=== PATIENT | female | born 1985 | race African-American/Black ===

== ENCOUNTER 2018-06-16 21:23 | Inpatient (IN) | payer OTHER ==
[2018-06-16] MEDS ORDERED: NA CHLORIDE 0.9% 1,000 ML ONE (22:48)
[2018-06-16] MEDS ORDERED: NA CHLORIDE 0.9% 500 ML ONE (22:48)
[2018-06-17] MEDS ORDERED: FENTANYL CITR 100 MCG/2 ML ONE (00:04)
[2018-06-17] MEDS ORDERED: Ringers Lactate 1,000 ML IV ONE (01:28)
[2018-06-17 02:20] LABS: Urine Bacteria <20 /HPF (<20); Urine Culture Reflex Order NOT NEEDED; Urine RBC <5 /HPF (NONE SEEN)
--- NOTE | 2018-06-17 03:17 | EDPHYS ---
Physician Documentation [facility] Name: Jhoana Acosta Age: 32 yrs Sex: Female : 1985 Arrival Date: 06/16/2018 Time: 21:28 Bed 6 Private MD: ED Physician Sheldon Banuelos HPI: 06/17 02:19 This 32 yrs old Black Female presents to ER via Wheelchair with complaints of Diarrhea. snw 02:19 The patient presents to the emergency department with nausea, vomiting, diarrhea. snw Onset: The symptoms/episode began/occurred gradually, 2 week(s) ago. Possible causes: unknown. The symptoms are aggravated by nothing. Associated signs and symptoms: Pertinent positives: diarrhea, Pertinent negatives: fever, vomiting. Severity of symptoms: At their worst the symptoms were moderate. The patient has experienced a previous episode, last month. 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 - Social history:: Smoking status: Patient/guardian denies using tobacco. - Ebola Screening: : No symptoms or risks identified at this time. ROS: 06/17 01:43 Constitutional: Negative for fever, chills, and weight loss, Eyes: Negative for injury, snw pain, redness, and discharge, ENT: Negative for injury, pain, and discharge, Neck: Negative for injury, pain, and swelling, Cardiovascular: Negative for chest pain, palpitations, and edema, Respiratory: Negative for shortness of breath, cough, wheezing, and pleuritic chest pain, Back: Negative for injury and pain, : Negative for injury, bleeding, discharge, and swelling, MS/Extremity: Negative for injury and deformity, Skin: Negative for injury, rash, and discoloration, Neuro: Negative for headache, weakness, numbness, tingling, and seizure. Abdomen/GI: Positive for diarrhea, abdominal distension, moaning more today.. Exam: 00:12 Head/Face: Normocephalic, atraumatic. Eyes: Pupils equal round and reactive to light, snw extra-ocular motions intact. Lids and lashes normal. Conjunctiva and sclera are non-icteric and not injected. Cornea within normal limits. Periorbital areas with no swelling, redness, or edema. 00:12 Neck: Trachea midline, no thyromegaly or masses palpated, and no cervical lymphadenopathy. Supple, full range of motion without nuchal rigidity, or vertebral point tenderness. No Meningismus. Chest/axilla: Normal chest wall appearance and motion. Nontender with no deformity. No lesions are appreciated. 00:12 Respiratory: Lungs have equal breath sounds bilaterally, clear to auscultation and percussion. No rales, rhonchi or wheezes noted. No increased work of breathing, no retractions or nasal flaring. 00:12 Back: No spinal tenderness. No costovertebral tenderness. Full range of motion. Skin: Warm, dry with normal turgor. Normal color with no rashes, no lesions, and no evidence of cellulitis. 00:12 Constitutional: The patient appears awake, restless, uncomfortable. 00:12 ENT: External ear(s): are unremarkable, Mouth: drooling, that is moderate, Voice: doesn't speak. 00:12 Cardiovascular: Rate: tachycardic, Rhythm: regular. 00:12 Abdomen/GI: Inspection: abdomen appears normal, Bowel sounds: hyperactive, Palpation: mild abdominal tenderness. 00:12 Musculoskeletal/extremity: Circulation is intact in all extremities. 00:12 Neuro: Orientation: unable to test, Mentation: unable to follow commands, Cerebellar function: CP, Gait: not tested. seizure activity, is not displayed by the patient, Abnormal movements: contractured, increased tone. Vital Signs: 06/16 21:48 BP 118 / 77; Pulse 120; Resp 20; Temp 97.4(TE); Pulse Ox 98% on R/A; Weight 62.14 kg lp1 (R); 22:47 BP 109 / 79; Pulse 118; Resp 23 S; Pulse Ox 99% on R/A; cc3 06/17 00:30 BP 106 / 72; Pulse 115; Resp 25 S; Pulse Ox 99% on R/A; cc3 01:14 BP 132 / 102; Pulse 127; Resp 26; Temp 99.9(A); Pulse Ox 99% on R/A; cc3 02:00 BP 121 / 93; Pulse 127; Resp 30; Pulse Ox 100% on Non-rebreather mask; cc3 03:45 BP 144 / 78; Pulse 121; Resp 26 S; Pulse Ox 98% on R/A; cc3 04:04 BP 126 / 82; Pulse 124; Resp 26 S; Pulse Ox 97% on R/A; cc3 05:07 BP 123 / 98; Pulse 118; Resp 25 S; Temp 100.1(A); Pulse Ox 98% on R/A; cc3 05:25 Pulse 132; Resp 35 S; Pulse Ox 97% on R/A; cc3 MDM: 06/16 22:31 Patient medically screened. [facility] 06/17 03:02 Data reviewed: vital signs, nurses notes. Data interpreted: Pulse oximetry: on room air snw is 100 %. Interpretation: normal. Counseling: I had a detailed discussion with the patient and/or guardian regarding: the historical points, exam findings, and any diagnostic results supporting the discharge/admit diagnosis, the presence of at least one elevated blood pressure reading (>120/80) during this emergency department visit, lab results, radiology results, the need for further work-up and treatment in the hospital. Physician consultation: Christine Krishnamurthy MD was called at 03:03, was contacted at 03:03, regarding admission, to the medical/surgical unit. 06/16 22:34 Order name: Basic Metabolic Panel; Complete Time: 15:18 snw 06/16 22:34 Order name: CBC with Diff; Complete Time: 15:18 snw 06/16 22:34 Order name: Creatinine for Radiology; Complete Time: 15:18 snw 06/16 22:34 Order name: Hepatic Function; Complete Time: 15:18 snw 06/16 22:34 Order name: Lipase; Complete Time: 15:18 snw 06/16 22:35 Order name: Blood Culture Adult (2) snw 06/16 22:35 Order name: CDIFF snw 06/17 01:04 Order name: Urine Culture snw 06/17 01:04 Order name: Urine Microscopic Only; Complete Time: 02:22 snw 06/17 01:05 Order name: Tegretol Level; Complete Time: 15:18 snw 06/17 02:22 Order name: CT Abd/Pelvis - Without Cont; Complete Time: 15:18 snw 06/17 02:30 Order name: Urine Dipstick--Ancillary (enter results); Complete Time: 15:18 ms 06/17 02:30 Order name: Urine --Ancillary (enter results); Complete Time: 15:18 ms 06/16 22:34 Order name: IV Saline Lock; Complete Time: 02:25 snw 06/16 22:34 Order name: Labs collected and sent; Complete Time: 03:32 snw 06/17 01:04 Order name: Cath; Complete Time: 02:23 snw 06/17 01:05 Order name: VS Recheck; Complete Time: 01:17 snw Administered Medications: 06/16 23:50 Drug: NS 0.9% (20 ml/kg) 20 ml/kg Route: IV; Rate: 1 bolus; Site: right hand; cc3 06/17 01:15 Follow up: Response: No adverse reaction; IV Status: Completed infusion; IV Intake: cc3 1242.8ml 00:00 Drug: fentaNYL (PF) 25 mcg Route: IVP; Site: right hand; cc3 00:30 Follow up: Response: No adverse reaction cc3 01:20 Drug: Lactated Ringers Solution 1000 ml Route: IV; Rate: 100 ml/hr; Site: right hand; cc3 05:15 Follow up: Response: No adverse reaction; IV Status: Infusion continued upon admission cc3 05:00 Drug: Ativan 0.5 mg Route: IVP; Site: right hand; cc3 05:15 Follow up: Response: No adverse reaction; Anxiety decreased cc3 Disposition: 07:26 Co-signature as Attending Physician, Sheldon Banuelos MD I agree with the assessment and [facility] plan of care. Disposition: 06/17/18 03:17 Hospitalization ordered by Christine Krishnamurthy for Inpatient Admission. Preliminary diagnosis are Dehydration, Diarrhea, unspecified, Generalized abdominal pain. - Bed requested for Intensive Care Unit. - Status is Inpatient Admission. cc3 - Condition is Fair. - Problem is an acute exacerbation. - Symptoms are unchanged. UTI on Admission? No Signatures: Dispatcher [employer] Denise Reid RN RN kl Anderson, Corey, MD MD cha Therrien, Shelly, PROPELLER LAYOUT WORKER-C PROPELLER LAYOUT WORKER-Csnw Andra Blair, RN RN bb Dayanara Thompson RN RN lp1 Mahnaz Mendosa cc3 Corrections: (The following items were deleted from the chart) 04:35 03:17 Hospitalization Ordered by Christine Krishnamurthy MD for Inpatient Admission. Preliminary kl diagnosis is Dehydration; Diarrhea, unspecified; Generalized abdominal pain. Bed requested for Intensive Care Unit. Status is Inpatient Admission. Condition is Fair. Problem is an acute exacerbation. Symptoms are unchanged. UTI on Admission? No. snw 05:44 04:35 06/17/2018 03:17 Hospitalization Ordered by Christine Krishnamurthy MD for Inpatient cc3 Admission. Preliminary diagnosis is Dehydration; Diarrhea, unspecified; Generalized abdominal pain. Bed requested for Intensive Care Unit. Status is Inpatient Admission. Condition is Fair. Problem is an acute exacerbation. Symptoms are unchanged. UTI on Admission? No. kl
--- NOTE | 2018-06-17 03:17 | ER ---
Nurse's Notes [facility] Name: Jhoana Acosta Age: 32 yrs Sex: Female : 1985 Arrival Date: 06/16/2018 Time: 21:28 Bed 6 Private MD: Diagnosis: Dehydration;Diarrhea, unspecified;Generalized abdominal pain Presentation: 06/16 21:49 Presenting complaint: Sister states she has been fussy all day, diarrhea x 2 weeks; lp1 Worried she may be dehydrated; States seen at [facility] last month for dehydration; appetite decreased today, "pressing on stomach seemed to agitate her". Transition of care: patient was not received from another setting of care. Onset of symptoms was June 16, 2018. Risk Assessment: Do you want to hurt yourself or someone else? Patient reports no desire to harm self or others. Initial Sepsis Screen: Does the patient meet any 2 criteria? No. Patient's initial sepsis screen is negative. Does the patient have a suspected source of infection? No. Patient's initial sepsis screen is negative. Care prior to arrival: None. 21:49 Method Of Arrival: Wheelchair lp1 21:49 Acuity: JILLIAN 3 lp1 Triage Assessment: 21:52 General: Patient resting, eyes closed, respirations unlabored. 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 - Social history:: Smoking status: Patient/guardian denies using tobacco. - Ebola Screening: : No symptoms or risks identified at this time. Screenin:53 Abuse screen: Denies threats or abuse. Denies injuries from another. Nutritional lp1 screening: No deficits noted. Tuberculosis screening: No symptoms or risk factors identified. 22:00 Fall Risk Secondary diagnosis (15 points) seizures, cerebral palsy. cc3 Assessment: 22:00 General: Appears in no apparent distress. uncomfortable, Behavior is calm. Pain: Unable cc3 to use pain scale. cerebral palsy. Neuro: Level of Consciousness is awake, confused, aphasic. Oriented to none aphasic. Cardiovascular: Denies chest pain. Respiratory: Airway is patent Respiratory effort is even, unlabored. GI: Abdomen is round distended. : No signs and/or symptoms were reported regarding the genitourinary system. EENT: No signs and/or symptoms were reported regarding the EENT system. Derm: No signs and/or symptoms reported regarding the dermatologic system. Musculoskeletal: cerebral palsy with flexed limbs. 23:00 Reassessment: Patient appears in no apparent distress at this time. Patient and/or cc3 family updated on plan of care and expected duration. Pain level reassessed. 06/17 00:15 Reassessment: called inside laboratory to do phlebotomy for the patient. cc3 00:46 Reassessment: Patient appears in no apparent distress at this time. Patient and/or cc3 family updated on plan of care and expected duration. Pain level reassessed. botany laboratory assistant came to do phlebotomy for the patient but unfortunately was not able to get, KERRY Patiño informed and she said to just hydrate the patient as of the meantime. 02:00 Reassessment: While preparing the patient for straight urinary catheter insertion, she cc3 developed tonic clonic seizures for 5 seconds, oxygen therapy and seizure precautions initiated; vital signs taken and recorded and informed KERRY Patiño. Patient's sister said the patient 's having seizures daily. 02:40 Reassessment: Phlebotomy done by charge nurse Silverman, blood sample collected sent to cc3 laboratory. 03:13 Reassessment: Patient came back from CT scan department, CT scan abdomen/pelvis done as cc3 ordered, waiting for result. 03:40 Reassessment: Laboratory called for clotted CBC, needs to be repeated; informed charge cc3 nurse Andra and said to call Dr. Krishnamurthy if he wants to put a PICC line for the patient once admitted. 03:50 Reassessment: Called Dr. Krishnamurthy thrice but he was not able to answer his phone and his cc3 voicemail box is full as well, charge nurse Andra informed. 04:10 Reassessment: Charge nurse Andra informed Dr. Krishnamurthy thru text messaging that there's no cc3 way we can prick again the patient for a repeat CBC sample and he replied that he will come to see the patient. Charge nurse Waynenda said she paged for the botany laboratory assistant to come and do phlebotomy for repeat CBC for the patient but no response from the botany laboratory assistant. 04:50 Reassessment: Dr. Krishnamurthy came and assessed the patient and he's aware that CBC needs to cc3 be repeated and he said he will order for PICC line insertion once the patient is admitted in the ICU and then that's when CBC sample can be recollected, charge nurse Andra aware. 04:57 Reassessment: received verbal order from Dr Krishnamurthy Ativan 0.5 mg IVP. bb 05:15 Reassessment: Patient and/or family updated on plan of care and expected duration. Pain cc3 level reassessed. Room available in ICU bed 2, report called to SUBHA Field, endorsed as well that Dr. Krishnamurthy said he will order for PICC line insertion for the patient once in ICU and still for CBC sample recollection. 05:20 Reassessment: Patient left ER vitally stable for admission by stretcher on seizure cc3 precautions, continuous cardiac monitoring and oxygen; escorted by SUBHA Joya, natural gas technician Guido and patient's sister. 05:25 Reassessment: Patient had another tonic-clonic seizure episode while on transport in cc3 the elevator on the way to ICU that lasted for 8 seconds. Vitals signs taken and recorded as charted, patient stabilized, and handed over to SUBHA Field that the patient just had another seizure episode. Vital Signs: 06/16 21:48 BP 118 / 77; Pulse 120; Resp 20; Temp 97.4(TE); Pulse Ox 98% on R/A; Weight 62.14 kg lp1 (R); 22:47 BP 109 / 79; Pulse 118; Resp 23 S; Pulse Ox 99% on R/A; cc3 06/17 00:30 BP 106 / 72; Pulse 115; Resp 25 S; Pulse Ox 99% on R/A; cc3 01:14 BP 132 / 102; Pulse 127; Resp 26; Temp 99.9(A); Pulse Ox 99% on R/A; cc3 02:00 BP 121 / 93; Pulse 127; Resp 30; Pulse Ox 100% on Non-rebreather mask; cc3 03:45 BP 144 / 78; Pulse 121; Resp 26 S; Pulse Ox 98% on R/A; cc3 04:04 BP 126 / 82; Pulse 124; Resp 26 S; Pulse Ox 97% on R/A; cc3 05:07 BP 123 / 98; Pulse 118; Resp 25 S; Temp 100.1(A); Pulse Ox 98% on R/A; cc3 05:25 Pulse 132; Resp 35 S; Pulse Ox 97% on R/A; cc3 ED Course: 06/16 21:28 Patient arrived in ED. ds1 21:50 Triage completed. lp1 21:52 Arm band placed on right wrist. lp1 22:00 Patient has correct armband on for positive identification. Placed in gown. Bed in low cc3 position. Call light in reach. Side rails up X2. Adult w/ patient. 22:17 Kaylyn Tang FNP-C is PHCP. snw 22:17 Sheldon Banuelos MD is Attending Physician. snw 22:37 Mahnaz Mendosa is Primary Nurse. cc3 23:49 Inserted saline lock: 24 gauge in right hand, using aseptic technique. by LOCAL BULK DRIVER Kaylyn. cc3 06/17 03:16 Christine Krishnamurthy MD is Hospitalizing Provider. snw 03:18 CT Abd/Pelvis - Without Cont In Process Unspecified. EDMS 03:19 CT completed. Patient tolerated procedure well. Patient moved back from CT. kw1 03:59 Notified the admitting physician of a critical lab result(s), Carbamazepine 13.9 Dr latoya Krishnamurthy notified. 05:15 No provider procedures requiring assistance completed. Patient admitted, IV remains in cc3 place. Administered Medications: 06/16 23:50 Drug: NS 0.9% (20 ml/kg) 20 ml/kg Route: IV; Rate: 1 bolus; Site: right hand; cc3 06/17 01:15 Follow up: Response: No adverse reaction; IV Status: Completed infusion; IV Intake: cc3 1242.8ml 00:00 Drug: fentaNYL (PF) 25 mcg Route: IVP; Site: right hand; cc3 00:30 Follow up: Response: No adverse reaction cc3 01:20 Drug: Lactated Ringers Solution 1000 ml Route: IV; Rate: 100 ml/hr; Site: right hand; cc3 05:15 Follow up: Response: No adverse reaction; IV Status: Infusion continued upon admission cc3 05:00 Drug: Ativan 0.5 mg Route: IVP; Site: right hand; cc3 05:15 Follow up: Response: No adverse reaction; Anxiety decreased cc3 Intake: 01:15 IV: 1243ml; Total: 1243ml. cc3 Outcome: 03:17 Decision to Hospitalize by Provider. snw 05:15 Admitted to ICU accompanied by nurse, accompanied by tech, family with patient, via cc3 stretcher, room ICU Room 2, with oxygen, on monitor, with chart, Report called to SUBHA Field 05:15 Condition: stable cc3 05:15 Instructed on the need for admit. 05:44 Patient left the ED. cc3 Signatures: Dispatcher [employer] EDMS Kaylyn Tang, CHRISTIAN HEAVY DUTY CUSTODIAN-Leela Busby ds1 Andra Blair RN RN bb Pena, Laura, RN RN lp1 Denise French1 Mahnaz Mendosa cc3 Corrections: (The following items were deleted from the chart) 06/16 21:54 21:49 Presenting complaint: Sister states she has been fussy all day, diarrhea x 2 lp1 weeks; Worried she may be dehydrated; States seen at [facility] last month for dehydration lp1 06/17 01:17 01:14 BP 132 / 102; Pulse 127bpm; Resp 22bpm; Pulse Ox 99% RA; cc3 cc3 04:00 03:40 Reassessment: Laboratory called for clotted CBC, needs to be repeated; informed cc3 charge nurse Andra. cc3 04:01 03:59 Notified the admitting physician of a critical lab result(s), Carbamazapine 13.[address] Krishnamurthy notified bb 04:10 10 22:37 General: see triage assessment. cc3 cc3 06/17 05:46 05:07 BP 123 / 98; Pulse 118bpm; Resp 22bpm; Spontaneous; Pulse Ox 98% RA; cc3 cc3 05:48 01:14 BP 132 / 102; Pulse 127bpm; Resp 22bpm; Pulse Ox 99% RA; Temp 99.9F Axillary; cc3 cc3 05:48 02:00 BP 121 / 93; Pulse 127bpm; Resp 25bpm; Pulse Ox 100% Non-rebreather mask; cc3 cc3 05:48 00:30 BP 106 / 72; Pulse 115bpm; Resp 21bpm; Spontaneous; Pulse Ox 99% RA; cc3 cc3 05:48 03:45 BP 144 / 78; Pulse 121bpm; Resp 20bpm; Spontaneous; Pulse Ox 98% RA; cc3 cc3 05:48 04:04 BP 126 / 82; Pulse 124bpm; Resp 21bpm; Spontaneous; Pulse Ox 97% RA; cc3 cc3 05:53 02:00 Reassessment: While preparing the patient for straight urinary catheter cc3 insertion, she developed tonic clonic seizures for 5 seconds, oxygen therapy and seizure precautions initiated; vital signs taken and recorded and informed LOCAL BULK DRIVER cc3 05:53 04:50 Reassessment: Dr. Krishnamurthy came and assessed the patient, awaiting plan. cc3 cc3
[2018-06-17 03:41] LABS: ALT/SGPT 24 U/L (12-78); AST/SGOT 12 U/L (15-37); Albumin 2.7 g/dL (3.4-5.0); Alkaline Phosphatase 86 U/L (45-117); BUN Blood Urea Nitrogen 5 mg/dL (7-18); Bicarbonate 20 mmol/L (21-32); Bilirubin Direct 0.2 mg/dL (0-0.2); Bilirubin Total 0.5 mg/dL (0.2-1.0); Glucose Level 115 mg/dL (74-106); Potassium 3.3 mmol/L (3.5-5.1); Protein, Total 7.5 g/dL (6.4-8.2); Sodium Level 143 mmol/L (136-145)
[2018-06-17 03:42] LABS: Lipase 72 U/L (73-393)
[2018-06-17 04:19] LABS: Urine Blood TRACE (NEG); Urine Glucose NEGATIVE (NEG); Urine Protein 2+ (NEG)
[2018-06-17] MEDS ORDERED: MORPHINE 2 MG/ML SYR IV PRN (04:20)
[2018-06-17] MEDS ORDERED: ACETAMINOPHEN 500 MG TAB PO PRN (04:20)
[2018-06-17] MEDS ORDERED: ONDANSETRON 4 MG/2 ML VIAL IV PRN (04:20)
[2018-06-17] MEDS ORDERED: NA CHLORIDE 0.9% 1,000 ML IV SCH ×2 (05:00→11:00)
[2018-06-17] MEDS ORDERED: LORazepam 2 MG/ML VIAL ONE (05:07)
[2018-06-17] MEDS ORDERED: CEFTRIAXONE 1 GM/50 ML BAG IV SCH (07:00)
[2018-06-17] MEDS ORDERED: AZITHROMYCIN IV 500 MG in NA CHLORIDE 0.9% 250 ML IVPB SCH (07:00)
--- NOTE | 2018-06-17 07:03 | P.HP ---
Certification for Inpatient Patient admitted to: Inpatient With expected LOS: >2 Midnights Patient will require the following post-hospital care: None Practitioner: I am a practitioner with admitting privileges, knowledge of patient current condition, hospital course, and medical plan of care. Services: Services provided to patient in accordance with Admission requirements found in Title 42 Section 412.3 of the Code of Federal Regulations Patient History Date of Service: 06/16/18 Reason for admission: Altered mental status History of Present Illness: Patient is a 32-year-old female who has a history of cerebral palsy and is cared by her mother at home. Her mother is her main lemon grower but she also has a sister who lives in the area who helps take care of her. Patient had been doing well up until this episode when she became very anxious. She seemed to be agitated and upset. Normally she sleeps quite a bit at home, however, over the last few days she has not been able to sleep at all. She came into the hospital for further evaluation. Most of the history was obtained from her sister who it is not her main lemon grower but is able to give me most of her information. Allergies Paper Tape Allergy (Uncoded 02/26/18 17:40) Rash Home Medications: Albuterol Sulfate [Albuterol Sulfate 0.083% Neb Soln] 2.5 mg IH Q4HP PRN Benzonatate [Tessalon Perle] 100 mg PO Q6HP PRN 03/03/18 Brinzolamide/Brimonidine Tart [Simbrinza 1%-0.2% Eye Drops] 8 ml EACH EYE BID Carbamazepine [Tegretol] 200 mg PO 5XD 03/03/18 Cephalexin [Keflex] 1,000 mg PO BID 03/03/18 Cholecalciferol (Vitamin D3) [Vitamin D 5,000 Iu Cap] 5,000 unit PO EVERY 7TH DAY 03/03/18 Diazepam [Diastat Acudial] 1 each RC PRN 03/03/18 Diphenhydramine HCl [Benadryl Allergy] 25 mg PO BID 03/03/18 Esomeprazole Mag Trihydrate [Nexium] 40 mg PO DAILY 03/03/18 Folic Acid 0.4 mg PO BEDTIME 03/03/18 Ibuprofen [Motrin] 500 mg PO PRN PRN 03/03/18 Latanoprost Ophth [Xalatan 0.005%*] 2.5 ml RIGHT EYE BEDTIME 03/03/18 Levetiracetam [Keppra] 750 mg PO BID 03/03/18 Medroxyprogester [Depo Provera] 150 mg IM DIRECTED 03/03/18 Metoprolol Succinate [Toprol Xl] 25 mg PO BEDTIME 03/03/18 Multivitamin [Daily Multiple Vitamin] 1 each PO BEDTIME 03/03/18 Sodium Bicarbonate 650 mg PO DAILY 03/03/18 Topiramate [Topamax] 100 mg PO BID 03/03/18 hydroCHLOROthiazide [Hydrochlorothiazide*] 1 tab PO DIRECTED 03/03/18 - Past Medical/Surgical History Has patient received pneumonia vaccine in the past: Yes Diabetic: No -: HTN -: Seizure Disorder -: Cerebral palsy -: Microcephaly -: Herpes encephalitis -: Hemiparesis -: PVC -: Cardiomegaly -: Heel cord lengthening of left heel -: Vagus Nerve Stimulator - Family History Father Medical History: Heart disease, Hypertension Mother Medical History: Hypertension, Kidney disease Notes: was on dialysis due to medication toxicity - Social History Smoking Status: Never smoker Alcohol use: No CD- Drugs: No Caffeine use: No Place of Residence: Home Review of Systems 10-point ROS is otherwise unremarkable Physical Examination - Vital Signs Temperature: 99.6 F Blood Pressure: 107/77 Pulse: 129 Respirations: 33 Pulse Ox (%): 97 - Physical Exam General: Alert, Oriented x1, Moderate distress, Confused HEENT: Atraumatic, PERRLA, Mucous membr. moist/pink, EOMI, Sclerae nonicteric Neck: Supple, 2+ carotid pulse no bruit, No LAD, Without JVD or thyroid abnormality Respiratory: Diminished, Expiratory wheezes Cardiovascular: Regular rate/rhythm, Normal S1 S2 Gastrointestinal: Normal bowel sounds, Soft and benign, Non-distended, Tenderness Musculoskeletal: No clubbing, No swelling, Tenderness Integumentary: No rashes Neurological: Normal gait, Normal speech, Normal strength at 5/5 x4 extr, Normal tone, Sensation intact, Cranial nerves 3-12 intact, Normal affect Lymphatics: No axilla or inguinal lymphadenopathy - Studies Laboratory Data (last 24 hrs) 06/17/18 02:40: Creatinine 0.50 L 10/09/18 02:40: Sodium 143, Potassium 3.3 L, BUN 5 L, Creatinine 0.60, Glucose 115 H, Total Bilirubin 0.5, AST 12 L, ALT 24, Alkaline Phosphatase 86, Lipase 72 L Microbiology Data (last 24 hrs): 06/17/18 02:40 Blood - Blood Anaerobic Blood Culture - Final Assessment & Plan - Problems (Diagnosis) (1) Bruxism (teeth grinding) Current Visit: No Status: Acute (2) Cerebral palsy Current Visit: No Status: Acute (3) Developmental disability Current Visit: No Status: Acute (4) Nonrheumatic mitral (valve) insufficiency Current Visit: No Status: Acute (5) Overweight (BMI 25.0-29.9) Current Visit: No Status: Acute (6) Seizure disorder Current Visit: No Status: Acute (7) Visual impairment Current Visit: No Status: Acute - Plan 1. Continue with IV antibiotics 2. Awaiting blood culture 3. Repeat chest x-ray 4. Will proceed with CT scan of the chest if pneumonia is not improved 5. Continue with nebs as needed 6. O2 per protocol 7. Continue with gentle hydration 8. Repeat labs including CBC and renal function in a.m. 9. Anxiolytic as needed 10. GI and DVT prophylaxis Discharge Plan: Home Plan to discharge in: Greater than 2 days - Advance Directives Does patient have a Living Will: No Does patient have a Durable POA for Healthcare: No - Code Status/Comfort Care Code Status Assessed: Yes Code Status: Full Code Critical Care: No Time Spent Managing PTS Care (In Minutes): 50
--- NOTE | 2018-06-17 07:04 | RAD REPORT ---
EXAM DESCRIPTION: CT - Abdomen Pelvis Wo Contrast - 06/17/2018 6:28 am CLINICAL HISTORY: Abdominal pain, recurrent diarrhea A preliminary report was provided at the time of the study and reviewed prior to final report. COMPARISON: None. TECHNIQUE: Axial [address] imaging of the abdomen and pelvis was performed without IV contrast. No IV contrast was given because of allergy, abnormal renal function, patient refusal or physician re quest. No oral contrast administered. All CT scans are performed using dose optimization technique as appropriate and may include automated exposure control or mA/KV adjustment according to patient size. FINDINGS: Right lung base is clear. There is left base opacification representing incompletely visua lized left base pneumonia or left base mass. Trace amount of pleural fluid seen on the left. Follow-u p CT chest or follow-up two-view chest examination needed. No pericardial thickening or effusion. The liver, spleen and pancreas show no suspicious findings on non-contrast imaging. Gallbladder and b iliary tree are also without suspicious finding. No hydronephrosis or suspicious renal mass. No significant adrenal finding. Isodense renal masses an d pyelonephritis cannot be excluded in the absence of IV contrast. The urinary bladder is without sig nificant finding. Uterus and ovaries show no suspicious findings. No dilated bowel loops or bowel wall thickening. No free air, free fluid or inflammatory stranding. N o hernia, mass or bulky lymphadenopathy. No acute bone findings seen. There is a very pronounced scoliotic deformity to the spine. IMPRESSION: Partially imaged pneumonia or mass lower left lung field with trace pleural fluid. Follo w-up chest film or follow-up CT chest imaging needed. CT abdomen and pelvis imaging shows no emergent or acute finding. Full assessment is limited is the absence of IV contrast.
[2018-06-17] MEDS ORDERED: BENZONATATE 100 MG CAP PO PRN (07:15)
[2018-06-17] MEDS ORDERED: LORazepam 2 MG/ML VIAL IV PRN (07:15)
[2018-06-17 07:56] LABS: Absolute Lymphocytes (CBC) 1.9 K/uL (0.7-4.9); Absolute Neutrophil 12.8 K/uL (1.8-8.0); Basophils % 0.5 % (0-1.3); Eosinophils % 0.3 % (0-4.4); Hematocrit 29.9 % (36.0-45.0); Lymphocytes % 11.2 % (15.3-44.8); MCH 24.4 pg (27.0-35.0); MCV 73.8 fL (80-100); MPV 9.1 fL (7.6-11.3); RBC Red Blood Cell Count 4.06 M/uL (3.86-4.86)
[2018-06-17] MEDS ORDERED: INFLUENZA VACCINE (for 3y+) 0.5 ML DOSE IMVAC ONE (08:00)
--- NOTE | 2018-06-17 08:40 | RAD REPORT ---
EXAM DESCRIPTION: CT - Head Brain Wo Cont - 06/17/2018 8:29 am CLINICAL HISTORY: Transient alteration of awareness COMPARISON: CT imaging April 2012 TECHNIQUE: Axial 5 mm thick images of the head were obtained without IV contrast. Patient was in a c ontracted state and imaged on her left side. All CT scans are performed using dose optimization technique as appropriate and may include automated exposure control or mA/KV adjustment according to patient size. FINDINGS: No intracranial hemorrhage, mass, edema or shift of mid-line structures. No acute infarcti on changes are present. There is a large area of encephalomalacia involving the temporal lobe and por tions of the parietal and occipital lobes on the right. A much smaller left parietal old CVA is seen. Ventricles have enlarged in proportion to the parenchymal volume loss. Intracranial findings match t bala 2012 study. No abnormal extra-axial fluid collections. Mastoid air cells and visualized portions of the paranasal sinuses are clear. No acute bony findings. IMPRESSION: No acute intracranial finding. The above detailed findings match the 2012 study.
--- NOTE | 2018-06-17 08:43 | P.CNS ---
Date of Consult: 06/17/18 Reason for Consult: Possible pneumonia Chief Complaint: Altered mental status History of Present Illness: Patient is 32 years of age with a history of cerebral palsy admitted with altered mental status failure to eat and drink patient does have recurrent seizures at home she has had a seizure this morning possible left lower lobe pneumonia patient is nonverbal no skin breakdown Allergies Paper Tape Allergy (Uncoded 02/26/18 17:40) Rash Home Medications: Albuterol Sulfate [Albuterol Sulfate 0.083% Neb Soln] 2.5 mg IH Q4HP PRN Benzonatate [Tessalon Perle] 100 mg PO Q6HP PRN 03/03/18 Brinzolamide/Brimonidine Tart [Simbrinza 1%-0.2% Eye Drops] 8 ml EACH EYE BID Carbamazepine [Tegretol] 200 mg PO 5XD 03/03/18 Cephalexin [Keflex] 1,000 mg PO BID 03/03/18 Cholecalciferol (Vitamin D3) [Vitamin D 5,000 Iu Cap] 5,000 unit PO EVERY 7TH DAY 03/03/18 Diazepam [Diastat Acudial] 1 each RC PRN 03/03/18 Diphenhydramine HCl [Benadryl Allergy] 25 mg PO BID 03/03/18 Esomeprazole Mag Trihydrate [Nexium] 40 mg PO DAILY 03/03/18 Folic Acid 0.4 mg PO BEDTIME 03/03/18 Ibuprofen [Motrin] 500 mg PO PRN PRN 03/03/18 Latanoprost Ophth [Xalatan 0.005%*] 2.5 ml RIGHT EYE BEDTIME 03/03/18 Levetiracetam [Keppra] 750 mg PO BID 03/03/18 Medroxyprogester [Depo Provera] 150 mg IM DIRECTED 03/03/18 Metoprolol Succinate [Toprol Xl] 25 mg PO BEDTIME 03/03/18 Multivitamin [Daily Multiple Vitamin] 1 each PO BEDTIME 03/03/18 Sodium Bicarbonate 650 mg PO DAILY 03/03/18 Topiramate [Topamax] 100 mg PO BID 03/03/18 hydroCHLOROthiazide [Hydrochlorothiazide*] 1 tab PO DIRECTED 03/03/18 Brinzolamide/Brimonidine Tart [Simbrinza 1%-0.2% Eye Drops] 1 gtt EACH EYE BID 06/17/18 - Past Medical/Surgical History Diabetic: No -: HTN -: Seizure Disorder -: Cerebral palsy -: Microcephaly -: Herpes encephalitis -: Hemiparesis -: PVC -: Cardiomegaly -: Heel cord lengthening of left heel -: Vagus Nerve Stimulator - Family History Father Medical History: Heart disease, Hypertension Mother Medical History: Hypertension, Kidney disease Notes: was on dialysis due to medication toxicity - Social History Alcohol use: No CD- Drugs: No Caffeine use: No Place of Residence: Home Review of Systems is unable to be obtained Physical Examination Temp Pulse Resp BP Pulse Ox 99.6 F 129 H 33 H 107/77 97 06/17/18 07:14 06/17/18 07:14 06/17/18 07:14 06/17/18 07:14 06/17/18 07:14 General: Alert, Unresponsive HEENT: Atraumatic Neck: Supple Respiratory: Normal air movement Cardiovascular: No edema, Normal S1 S2 Gastrointestinal: Normal bowel sounds, Soft and benign Laboratory Data (last 24 hrs) 06/17/18 02:40: Creatinine 0.50 L 06/17/18 02:40: Sodium 143, Potassium 3.3 L, BUN 5 L, Creatinine 0.60, Glucose 115 H, Total Bilirubin 0.5, AST 12 L, ALT 24, Alkaline Phosphatase 86, Lipase 72 L - Problems (1) Pneumonia Current Visit: Yes Status: Acute Plan: Patient is 32 years of age with a history of cerebral palsy recurrent seizures admitted with altered mental status possible left lower lobe pneumonia patient has a mild microcytic anemia elevated white count pro calcitonin level pending no acute changes also history of some diarrhea C. difficile pending currently on levofloxacin cultures are pending vital signs stable oxygenation satisfactory chest x-ray ordered
[2018-06-17] MEDS ORDERED: levETIRAcetam 500 MG TAB PO SCH (09:00)
[2018-06-17] MEDS: BRINZOLAMIDE EACH EYE SCH ×2 (09:00→21:00)
[2018-06-17] MEDS: TOPIRAMATE 100 MG TAB PO SCH ×2 (09:00→21:00)
[2018-06-17] MEDS ORDERED: CEFTRIAXONE/SWI 1gm 1 GM/10 ML SYR IV SCH (09:00)
[2018-06-17] MEDS: BRIMONIDINE TART EACH EYE SCH ×2 (09:00→21:00)
[2018-06-17] MEDS ORDERED: MORPHINE 4 MG/ML SYR IV PRN (09:03)
[2018-06-17] MEDS: Levofloxacin 750mg IV 750 MG/150 ML BAG IV SCH (09:13)
[2018-06-17] MEDS ORDERED: SODIUM CHLORIDE 0.9% 10ML INJ IV PRN (10:35)
--- NOTE | 2018-06-17 10:44 | P.PN ---
Subjective Date of Service: 06/17/18 Primary Care Provider: Eric Lozoya NP; Neurology-Dr. Lopez; Card-Dr. Ramírez Chief Complaint: Altered mental status Subjective: Other (Patient nonverbal. Patient still with altered mental status changes.) Physical Examination - Vital Signs Temperature: 99.6 F Blood Pressure: 107/77 Pulse: 129 Respirations: 33 Pulse Ox (%): 97 - Physical Exam General: Confused, Other (Patient still with altered mental status changes. Increased somnolence noted. Vital signs stable.) HEENT: Atraumatic, Other (Dry mucous membranes) Respiratory: Clear to auscultation bilaterally, Normal air movement Cardiovascular: Abnormal pulses (Sinus tachycardia ) Gastrointestinal: Normal bowel sounds, Soft and benign, Non-distended, No masses , No rebound, No guarding Musculoskeletal: No tenderness, No warmth Integumentary: No erythema, No warmth, No cyanosis Neurological: Other (.) - Studies Laboratory Data (last 24 hrs) 06/17/18 02:40: Creatinine 0.50 L 06/17/18 02:40: Sodium 143, Potassium 3.3 L, BUN 5 L, Creatinine 0.60, Glucose 115 H, Total Bilirubin 0.5, AST 12 L, ALT 24, Alkaline Phosphatase 86, Lipase 72 L Microbiology Data (last 24 hrs): 06/17/18 02:40 Blood - Blood Anaerobic Blood Culture - Final Medications List Reviewed: Yes Assessment & Plan Discharge Plan: Home Plan to discharge in: Greater than 2 days - Code Status/Comfort Care Code Status Assessed: Yes (Patient is DNR. Family to provide paperwork) Physician Review Additional Text: Impression: Acute encephalopathy likely multifactorial likely with sepsis secondary to left lower lobe pneumonia with history of cerebral palsy/History of CVA with encephalomalacia/Patient nonverbal/Bruxism Recent diarrhea suspect C diff colitis Seizure disorder with elevated Tegretol level Hypokalemia Anemia likely of chronic disease Poor IV access Malnutrition Hypertension Plan: Acute encephalopathy likely multifactorial likely with sepsis secondary to left lower lobe pneumonia with history of cerebral palsy/History of CVA with encephalomalacia/Patient nonverbal/Bruxism: Will continue with IV fluids. Pro calcitonin elevated. IV antibiotic therapy change to IV Levaquin. Pulmonology consulted for further recommendation. Will restart Keppra IV. Will hold Tegretol level due to elevation in level. Neurology consulted. Await further recommendation. CT scan shows no acute changes. Patient with history of CVA and encephalomalacia. Blood and urine cultures obtained. Will continue to monitor closely. Will try to place Dobbhoff to start nutrition and provide oral medication. Aspiration precaution in place. DVT prophylaxis in place. Patient has DNR in place. Advanced directives addressed again with sister. They are to provide her DNR paperwork. Recent diarrhea suspect C diff colitis: Patient with recent diarrhea and antibiotic use. Await C diff culture results if positive patient will require vancomycin orally. Seizure disorder with elevated Tegretol level: Tegretol level elevated. Will hold Tegretol at this time. Will continue with IV Keppra. Neurology consulted to further evaluate and assess. Hypokalemia: Will replace electrolytes. Will monitor closely. Anemia likely of chronic disease: Will check iron and B12 studies. Will monitor closely. Poor IV access: Will order PICC line. Malnutrition: Will consult dietary to further evaluate. If Dobbhoff is able to be placed then will start nutrition by mouth. Hypertension: Will provide medication as needed. Will monitor closely. Will check echocardiogram. Time Spent Managing Pts Care (In Minutes): 55
[2018-06-17] MEDS: NACHLORIDE 0.45% 1,000 ML IV SCH ×2 (10:55→11:00)
--- NOTE | 2018-06-17 11:16 | RAD REPORT ---
EXAM DESCRIPTION: [place] Single View06/17/2018 10:25 am CLINICAL HISTORY: Chest pain COMPARISON: 06/17/2018 CT abdomen FINDINGS: The left lung is hazy. Right lung appears clear. The heart is normal size. The heart is no rmal size IMPRESSION: Left lung is hazy likely indicating a pneumonia. This should be followed until it is cl ear to exclude a post obstructive process/underlying mass
[2018-06-17] MEDS: levETIRAcetam 750 MG in NA CHLORIDE 0.9% 100 ML IV SCH ×2 (11:30→22:00)
[2018-06-17] MEDS: NACHLORIDE 0.45% IV SCH (11:38)
[2018-06-17] MEDS: THIAMINE HCL IV SCH (11:38)
[2018-06-17] MEDS: FOLIC ACID IV SCH (11:38)
[2018-06-17 11:49] LABS: Ferritin 51.2 ng/mL (8-388)
[2018-06-17] MEDS ORDERED: FOLIC ACID IV SCH ×3 (12:00)
[2018-06-17] MEDS ORDERED: THIAMINE HCL IV SCH ×3 (12:00)
[2018-06-17] MEDS ORDERED: NACHLORIDE 0.45% IV SCH ×3 (12:00)
[2018-06-17] MEDS: ENOXAPARIN 40 MG/0.4 ML SQ SCH (16:53)
--- NOTE | 2018-06-17 17:59 | ECHO ---
HEIGHT: 4 ft 11 in WEIGHT: 130 lb 0 oz DATE OF STUDY: 06/17/[address]: Mario Rascon DO 2-DIMENSIONAL: YES M.MODE: YES DOPPLER: COLOR FLOW: TDS: YES PORTABLE: YES DEFINITY: BUBBLE STUDY: DIAGNOSIS: HYPERTENSION CARDIAC HISTORY: CATHERIZATION: SURGERY: PROSTHETIC VALVE: PACEMAKER: MEASUREMENTS (cm) DIASTOLIC (NORMALS) SYSTOLIC (NORMALS) 2 DIMENSIONAL ASSESSMENT: RIGHT ATRIUM: LEFT ATRIUM: RIGHT VENTRICLE: LEFT VENTRICLE: TRICUSPID VALVE: MITRAL VALVE: PULMONIC VALVE: AORTIC VALVE: PERICARDIAL EFFUSION: AORTIC ROOT: LEFT VENTRICULAR WALL MOTION: DOPPLER/COLOR FLOW: COMMENTS: UNABLE TO PROVIDE ANY INTERPRETATION. TECHNICALLY DIFFICULT STUDY. NO USEFUL IMAGES. TECHNOLOGIST: LUPIS PERDOMO
--- NOTE | 2018-06-17 20:59 | RAD REPORT ---
EXAM DESCRIPTION: RAD - Chest Single View - 06/17/2018 8:13 pm CLINICAL HISTORY: Device placement PICC line placement FINDINGS: A PICC line crosses midline with the tip presumably within the left brachiocephalic vein CLINICAL HISTORY: A PICC line crosses midline with the tip presumably within the left brachiocephalic vein
[2018-06-17] MEDS ORDERED: LATANOPROST 0.005% 2.5ML OPTH OPTH SCH (21:00)
[2018-06-17] MEDS ORDERED: FOLIC ACID 1 MG TABLET PO SCH (21:00)
--- NOTE | 2018-06-17 23:30 | CON ---
Date of Consultation: 06/17/2018 Reason For Consultation: Consultation called because of altered mental status. History Of Present Illness: Ms. Acosta is a 32-year-old patient with cerebral palsy and multiple othe r medical problems including hypertension, microcephaly, epilepsy, and herpes encephalitis, who repor tedly at baseline is able to eat, but is nonverbal. She does show mood changes, but was not at her b aseline for the last day prior to admission, that is on the 16 of June. The patient is normally cared for by her mother and sister and they noted the change, where she seems more anxious, agitated, and not wanting to eat and not now resting as she usually does. She was brought to [facility] for an evaluation. Her head CT scan showed no acute ischemic or hemorrhagic change. There was a large area of encephalomalacia involving the temporal lobes and potion of the parieto-occipital lobe s on the right. Also old smaller left parietal strokes were seen and the ventricles were enlarged in proportion to the volume loss. The scan was compared to 1 from November of 2011, which showed no diffe rence. Her chest x-ray showed left lung being hazy, likely indicating a pneumonia, although the radi ologist did suggest possibility of a postobstructive underlying lung mass. Laboratory studies did sh ow elevated white blood cell count 16.8 with neutrophils 76. Hemoglobin and hematocrit were slightly low at 9.9 and 29.9. Chemistries show slightly low potassium of 3.3, chloride elevated at 112, sodi um normal 143, BUN low at 5. Creatinine is normal. Glucose 115. Lactic acid normal at 1.1. Procal citonin was slightly elevated at 0.88, which is consistent with systemic infection. B12 level is dorothy vated to 1998. Urinalysis showed 2+ protein, trace of blood, and she is on carbamazepine and levetir acetam. Carbamazepine level was elevated at 13.9. The patient was admitted with IV fluids in the IC U and has had an EEG, which reports are pending. She did have an echocardiogram in the ICU to study, which was actually unable to be interpreted because of technical difficulties. There were no useful images. Past Medical History: As indicated above in addition to cardiomegaly, frequent PVCs, and hemiparesis from her chronic stroke. Surgical History: Vagus nerve stimulator implantation, heel cord lengthening in the heel. Family History: Heart disease, hypertension in the father and hypertension, kidney disease in the mo ther. Social History: No alcohol, tobacco, or IV drug use. Home Medications: Albuterol nebulizer every 4 hours, Tessalon Perles 100 mg every 6 hours, Simbrinza eye drops twice daily, Tegretol 200 mg 5 times daily, Keflex 1000 mg twice daily, vitamin D 5000 uni ts every 7 days, diazepam mg as needed, Benadryl 25 mg twice daily, Nexium 40 mg daily, fo lic acid 0.4 mg daily, Motrin 5 mg as needed, Xalatan 0.005% in the right eye daily, Keppra 750 mg tw ice daily, Depo-Provera 150 mg as directed, Toprol-XL 25 mg at bedtime, multivitamin daily, sodium bi carb 625 mg daily, topiramate 100 mg twice daily, and hydrochlorothiazide 1 tablet daily. Review of Systems: Unable to perform review of systems as the patient is nonverbal. Physical Examination: Vital Signs: Blood pressure 112/75, pulse of 123, respiratory rate 32, temperature 98.4, and oxygen saturation 99%. Weight 130 pounds, height 4 feet and 11 inches. Neurologic: Ms. Acosta is resting in bed. She does respond to verbal stimulation by turning her head and some semipurposeful movement is noted. More movement is noted on the right side versus the left side of the upper extremities. The patient did tighten her eyes more tightly when attempts were mad e to open her eyes. The pupils were equal, measuring around 3 mm. She did have doll's eyes response . She does have increased tone in the upper and lower extremities. Unable to assess strength, coord ination, and gait. Laboratory Studies: As indicated. Assessment: Ms. Acosta is a 32-year-old patient with multifactorial reasons for encephalopathy includ ing toxic reasons, potentially a pneumonia in addition to elevated Tegretol levels on a baseline of c erebral palsy with minimal verbal interaction. The head CT scan does not show evidence of an acute s troke, but she has significant encephalomalacia from multiple chronic strokes. Plan: 1.Continue with current antiepileptic medications. 2.We will follow up on EEG, although no evidence that she has had any seizures prior to or during ho spitalization. 3.Aggressive management of pneumonia. 4.Hold Tegretol dosage until the Tegretol level is around 10 and may restart Tegretol 100 mg less th an current dosage. DOT Voice ID: [id number] Report ID: [id number]
[2018-06-18] MEDS: NA CHLORIDE 0.9% 500 ML IV SCH ×2 (00:50→05:08)
[2018-06-18] MEDS: D5 0.9 NS 1,000 ML IV SCH ×2 (01:52→12:00)
[2018-06-18 05:29] LABS: Absolute Lymphocytes (CBC) 1.8 K/uL (0.7-4.9); Absolute Monocytes 1.8 K/uL (0.1-1.3); Absolute Neutrophil 10.9 K/uL (1.8-8.0); Basophils % 0.3 % (0-1.3); Eosinophils % 0.4 % (0-4.4); Hematocrit 27.1 % (36.0-45.0); Lymphocytes % 12.1 % (15.3-44.8); MCH 24.9 pg (27.0-35.0); MCV 74.2 fL (80-100); MPV 8.8 fL (7.6-11.3); Monocytes % 12.5 % (3.3-12.3); RBC Red Blood Cell Count 3.66 M/uL (3.86-4.86)
[2018-06-18 05:48] LABS: ALT/SGPT 18 U/L (12-78); AST/SGOT 12 U/L (15-37); Albumin 2.3 g/dL (3.4-5.0); Alkaline Phosphatase 68 U/L (45-117); BUN Blood Urea Nitrogen 3 mg/dL (7-18); Bicarbonate 20 mmol/L (21-32); Bilirubin Total 0.3 mg/dL (0.2-1.0); Glucose Level 93 mg/dL (74-106); Magnesium 2.1 mg/dL (1.8-2.4); Protein, Total 7.3 g/dL (6.4-8.2); Sodium Level 145 mmol/L (136-145); Thyroid Stimulating Hormone 1.47 uIU/mL (0.360-3.740)
[2018-06-18 05:50] LABS: Potassium 2.6 mmol/L (3.5-5.1)
[2018-06-18] MEDS: KCL 20 MEQ/100 mL IVPB 20 MEQ/100 ML BAG IV SCH ×4 (06:16→12:11)
[2018-06-18] MEDS ORDERED: PANTOPRAZOLE 40MG TABLET PO SCH (06:30)
[2018-06-18] MEDS ORDERED: CARBAMAZEPINE 200 MG TAB PO SCH (08:00)
[2018-06-18] MEDS ORDERED: NA CHLORIDE 0.9% 500 ML ONE (08:31)
[2018-06-18] MEDS: Levofloxacin 750mg IV 750 MG/150 ML BAG IV SCH (08:42)
[2018-06-18] MEDS: PANTOPRAZOLE 40 MG INJ IVP SCH (08:42)
--- NOTE | 2018-06-18 08:48 | P.PN ---
Subjective Date of Service: 06/18/18 Primary Care Provider: Eric Lozoya NP; Neurology-Dr. Lopez; Card-Dr. Ramírez Chief Complaint: Altered mental status Subjective: Other (Patient still nonverbal. Patient still confused with increased somnolence noted.) Physical Examination - Vital Signs Temperature: 99.0 F Blood Pressure: 125/72 Pulse: 119 Respirations: 34 Pulse Ox (%): 96 - Physical Exam General: Confused, Other (Increased somnolence) HEENT: Atraumatic, Other (Dry mucous membranes) Respiratory: Crackles/rales (Bilateral), Expiratory wheezes (Bilateral cyst) Cardiovascular: Abnormal pulses (Sinus tachycardia) Gastrointestinal: Normal bowel sounds, Soft and benign, Non-distended, No masses , No rebound, No guarding Musculoskeletal: Contractures (To upper and lower extremities) Neurological: Other (Patient nonverbal. Increase confusion noted. Still with increased somnolence.) - Studies Microbiology Data (last 24 hrs): 06/16/18 07:22 Blood - Blood Anaerobic Blood Culture - Final 06/17/18 02:40 Blood - Blood Anaerobic Blood Culture - Final Medications List Reviewed: Yes Assessment & Plan Discharge Plan: Home Plan to discharge in: Greater than 2 days Physician Review Additional Text: Impression: Acute encephalopathy likely multifactorial likely with sepsis secondary to left lower lobe pneumonia with history of cerebral palsy/History of CVA with encephalomalacia/Patient nonverbal/Bruxism Recent diarrhea suspect C diff colitis Seizure disorder with elevated Tegretol level Hypokalemia Anemia likely of chronic disease Poor IV access Malnutrition Hypertension Plan: Acute encephalopathy likely multifactorial likely with sepsis secondary to left lower lobe pneumonia with history of cerebral palsy/History of CVA with encephalomalacia/Patient nonverbal/Bruxism: Will continue with IV fluids. Encephalopathy likely multifactorial related to sepsis-pneumonia. Continue with IV Levaquin. Patient also has a history of cerebral palsy, seizure disorder and previous CVA with noted encephalomalacia. CT head shows no acute stroke. Case discussed with Neurology. Will continue with IV Keppra. Patient will need to be restarted on Tegretol. Will check with pharmacy to find out equivalent dose of Tegretol IV. Patient currently taking 200 mg 5 times a day. Neurology plans to decrease Tegretol by 100 mg of total dose per day. Patient was not able to get Dobbhoff yesterday. Will need to continue to reassess swallowing. Patient at risk for aspiration. Will need to discuss with family about the possible need of PEG tube if this is required. May need to consider TPN. Advanced directives address in detail with family. Patient DNR. Blood and urine cultures pending. I will turn the service over to Dr. Franklin tomorrow. I will go over the plan of care with her. Recent diarrhea suspect C diff colitis: Patient with recent diarrhea and antibiotic use. Await C diff culture results if positive patient will require vancomycin orally. Seizure disorder with elevated Tegretol level: Tegretol level improved. Tegretol can be restarted but at 100 mg less of total dose as per neurology. Pharmacy to calculate equivalent dose of Tegretol IV. Patient continues with IV Keppra. Hypokalemia: Will replace electrolytes. Will monitor closely. Anemia likely of chronic disease: Will continue to monitor CBC. Patient may require transfusion if hemoglobin less than 7.0 Poor IV access: PICC line in place. Malnutrition: Will consult dietary to further evaluate. May need to start TPN as patient was not able to tolerate Dobbhoff placement. Will need discuss with family about the possible need of PEG tube in the near future if dysphagia is noted. Hypertension: Will provide medication as needed. Will monitor closely. Echo was technically difficult. Time Spent Managing Pts Care (In Minutes): 55
[2018-06-18] MEDS: levETIRAcetam 750 MG in NA CHLORIDE 0.9% 100 ML IV SCH ×2 (08:54→22:56)
[2018-06-18] MEDS: TOPIRAMATE 100 MG TAB PO SCH ×2 (09:00→21:00)
[2018-06-18] MEDS ORDERED: FOLIC ACID 5 MG/ML VIAL IVP SCH (09:00)
[2018-06-18] MEDS: BRINZOLAMIDE EACH EYE SCH (09:00)
[2018-06-18] MEDS ORDERED: THIAMINE 200 MG/2 ML INJ IVP SCH (09:00)
[2018-06-18] MEDS: BRIMONIDINE TART EACH EYE SCH (09:00)
[2018-06-18] MEDS: ACETAMINOPHEN 650MG/RECT SUPP PR PRN ×3 (09:10→22:57)
[2018-06-18] MEDS ORDERED: LORazepam 2 MG/ML VIAL IV PRN (09:36)
[2018-06-18] MEDS: VALPROATE SODIUM INJ 500 MG in NA CHLORIDE 0.9% 100 ML IV SCH ×2 (09:53→21:30)
[2018-06-18] MEDS ORDERED: LORazepam 2 MG/ML VIAL IV ONE (10:07)
[2018-06-18] MEDS ORDERED: VALPROATE SODIUM INJ 500 MG in NA CHLORIDE 0.9% 100 ML IV ONE (10:15)
[2018-06-18] MEDS: FOLIC ACID IV SCH (11:04)
[2018-06-18] MEDS: NACHLORIDE 0.45% IV SCH (11:04)
[2018-06-18] MEDS: THIAMINE HCL IV SCH (11:04)
[2018-06-18] MEDS: LORazepam 2 MG/ML VIAL IV PRN ×7 (11:33→19:07)
--- NOTE | 2018-06-18 13:25 | EEG ---
CHART: [id number] TEST ID#: [id number] DATE OF STUDY: 06/17/2018 THE EEG WAS RECORDED PORTABLE IN THE ICU ON A 17 CHANNEL MACHINE. ELECTRODES WERE APPLIED IN THE USUAL MANNER USING THE INTERNATIONAL 10-20 SYSTEM. THE WAKING BACKGROUND RHYTHM IN THIS RECORD CONSISTS OF POORLY DEVELOPED AND POORLY ORGANIZED WAVES OF 6-7 HZ., IN A WIDE DISTRIBUTION WHICH ATTENUATE POORLY WITH EYE OPENING. MODERATE VOLTAGE SPIKE AND SLOW-WAVE ACTIVITY IS EXPRESSED IN THE LEFT, CENTRAL AND TEMPORAL REGION. THERE IS SECONDARY BILATERAL SYNCHRONY IN THE HOMOLOGOUS REGION ON THE RIGHT. SLEEP DID NOT OCCUR. HYPERVENTILATION WAS NOT PERFORMED. PHOTIC STIMULATION PRODUCED NO DRIVING BILATERALLY. IMPRESSION: THIS IS AN ABNORMAL EEG DUE TO AN EPILEPTIFORM FOCUS IN THE LEFT TEMPORAL REGION AND A DIFFUSELY SLOW BACKGROUND. THESE FINDINGS ARE CONSISTENT WITH THE PRESENCE OF A DIFFUSE DISTURBANCE IN CEREBRAL ACTIVITY AND AN EPILEPLOGENIC LESION IN THE LEFT TEMPORAL REGION.
--- NOTE | 2018-06-18 13:41 | EEG ---
CHART: [id number] TEST ID#: [id number] DATE OF STUDY: 06/18/2018 THE EEG WAS RECORDED PORTABLE IN THE ICU ON A 14 CHANNEL MACHINE. ELECTRODES WERE APPLIED IN THE USUAL MANNER USING THE INTERNATIONAL 10-20 SYSTEM. THE WAKING BACKGROUND RHYTHM IN THIS RECORD CONSISTS OF POORLY DEVELOPED AND POORLY ORGANIZED WAVES OF 6-7 HZ., IN A WIDE DISTRIBUTION WHICH ATTENUATE POORLY WITH EYE OPENING. FREQUENT MODERATE VOLTAGE 1-3 HZ SPIKE AND WAVE DISCHARGES ARE NOTED ON THE LEFT MID TEMPORAL REGION (T3). AT TIMES THE ACTIVITY BECOMES RHYTHMIC AND ASSOCIATED WITH POSTURING. EXCESS LOEW-VOLTAGE 18-22 HZ ACTIVITY IS EXPRESSED IN ALL REIGIONS. SLEEP OCCURRED NATURALLY. IN ADDITION NORMAL SLEEP PATTERNS ARE PRESENT. HYPERVENTILATION WAS NOT PEFORMED. PHOTIC STIMULATION WAS NOT PERFORMED. IMPRESSION: THIS IS AN ABNORMAL EEG DUE TO AN ACTIVE EPILEPTOGENIC FOCUS IN THE LEFT MID TEMPORAL REGION. RHYTHMIC SPIKE AND WAVE ACTIVIY IN THIS REGION IS ASSOCIATED WITH POSTURING SEMIOLOGY. THE EEG BACKGROUND IS CONSISTENT WITH A MILD TO MODERATE DIFFUSE DISTURBANCE IN CEREBRAL FUNCTION.
[2018-06-18] MEDS ORDERED: INFLUENZA VACCINE (for 3y+) 0.5 ML DOSE IMVAC ONE (14:00)
[2018-06-18] MEDS: ENOXAPARIN 40 MG/0.4 ML SQ SCH (16:42)
[2018-06-18] MEDS ORDERED: KCL 20 MEQ/100 mL IVPB 20 MEQ/100 ML BAG IV SCH (17:00)
[2018-06-18] MEDS ORDERED: PHENOBARBITAL 130 MG/ML INJ IV ONE (19:20)
[2018-06-18] MEDS ORDERED: NA CHLORIDE 0.9% 100 ML ONE (20:20)
[2018-06-18] MEDS ORDERED: PROPOFOL 1,000 MG/100 ML VIAL IV ONE (20:36)
[2018-06-18] MEDS ORDERED: RSI MEDICATION KIT IV ONE (20:37)
--- NOTE | 2018-06-18 21:23 | RAD REPORT ---
EXAM DESCRIPTION: RAD - Chest Single View - 06/18/2018 9:11 pm CLINICAL HISTORY: EET tube placement Chest pain. COMPARISON: Chest Single View dated 06/17/2018; Chest Single View dated 06/17/2018; CHEST SINGLE VIEW dated 05/07/2012 FINDINGS: Portable technique limits examination quality. Tip of the ET tube is above the doris. Right-sided PICC line has tip in the left brachiocephalic vei n. The heart is normal in size. Single lead pacer device is in place.
[2018-06-18 21:47] LABS: Arterial Blood Carboxyhemoglob 1.1 % (0-1.5); Blood Gas Oxyhemoglobin 95.9 % (94-97); Blood O2 Saturation 97.8 % (92-98.5)
[2018-06-18] MEDS: Brinzolamide/Brimonidine Tart (Simbrinza) 1%-0.2% Eye Drops EACH EYE SCH ×2 (22:53→22:54)
[2018-06-18] MEDS: LATANOPROST 0.005% OPTH SCH (22:55)
[2018-06-18] MEDS ORDERED: FENTANYL CITR 100 MCG/2 ML IV PRN (23:38)
[2018-06-19] MEDS: PROPOFOL 1,000 MG/100 ML VIAL IV PRN ×3 (04:56→20:52)
[2018-06-19] MEDS: D5 0.9 NS 1,000 ML IV SCH ×2 (04:56→08:00)
[2018-06-19 05:34] LABS: Hematocrit 27.9 % (36.0-45.0); MCH 24.6 pg (27.0-35.0); MCV 74.3 fL (80-100); MPV 8.5 fL (7.6-11.3); RBC Red Blood Cell Count 3.76 M/uL (3.86-4.86)
[2018-06-19 05:37] LABS: Bicarbonate 23 mmol/L (21-32); Glucose Level 84 mg/dL (74-106); Magnesium 2.1 mg/dL (1.8-2.4); Phosphorus 2.8 mg/dL (2.5-4.9); Potassium 3.2 mmol/L (3.5-5.1); Sodium Level 151 mmol/L (136-145)
[2018-06-19 05:40] LABS: BUN Blood Urea Nitrogen < 1 mg/dL (7-18)
[2018-06-19] MEDS: PANTOPRAZOLE 40 MG INJ IVP SCH (08:11)
[2018-06-19] MEDS: Brinzolamide/Brimonidine Tart (Simbrinza) 1%-0.2% Eye Drops EACH EYE SCH ×2 (08:12→20:51)
[2018-06-19] MEDS: ACETAMINOPHEN 650MG/RECT SUPP PR PRN (08:22)
[2018-06-19] MEDS ORDERED: Pharmacy Consult 1 EA XX PRN (08:25)
--- NOTE | 2018-06-19 08:28 | P.PN ---
Subjective Date of Service: 06/19/18 Primary Care Provider: Eric Lozoya NP; Neurology-Dr. Lopez; Card-Dr. Ramírez Chief Complaint: Patient on a ventilator Condition stable patient agitated was intubated yesterday started on phenobarbital also on propofol for active ongoing seizures patient is having a fever a left-sided opacification possible pneumonia sputum cultures are pending Review of Systems is unable to be obtained Physical Examination - Vital Signs Temperature: 99.1 F Blood Pressure: 98/61 Pulse: 115 Respirations: 12 Pulse Ox (%): 100 - Physical Exam General: Unresponsive Respiratory: Clear to auscultation bilaterally, Diminished Cardiovascular: No edema, Regular rate/rhythm - Studies Microbiology Data (last 24 hrs): 06/17/18 02:05 Catheterized Urine [place] Count - Final 06/17/18 02:05 Catheterized Urine - Final 06/16/18 07:22 Blood - Blood Anaerobic Blood Culture - Final Medications List Reviewed: Yes Assessment & Plan - Problems (Diagnosis) (1) Pneumonia Onset Date: 06/18/18 Current Visit: Yes Status: Acute Plan: Patient has a fever left-sided opacification most likely pneumonia continue with levofloxacin I have added vancomycin sputum cultures white count has declined blood cultures are so far negative patient on a ventilator oxygenation satisfactory Qualifiers: Pneumonia type: due to unspecified organism (2) Hypernatremia Current Visit: Yes Status: Acute Plan: Start on D5 water Physician Review Additional Text: Impression: Acute encephalopathy likely multifactorial likely with sepsis secondary to left lower lobe pneumonia with history of cerebral palsy/History of CVA with encephalomalacia/Patient nonverbal/Bruxism Recent diarrhea suspect C diff colitis Seizure disorder with elevated Tegretol level Hypokalemia Anemia likely of chronic disease Poor IV access Malnutrition Hypertension Plan: Acute encephalopathy likely multifactorial likely with sepsis secondary to left lower lobe pneumonia with history of cerebral palsy/History of CVA with encephalomalacia/Patient nonverbal/Bruxism: Will continue with IV fluids. Encephalopathy likely multifactorial related to sepsis-pneumonia. Continue with IV Levaquin. Patient also has a history of cerebral palsy, seizure disorder and previous CVA with noted encephalomalacia. CT head shows no acute stroke. Case discussed with Neurology. Will continue with IV Keppra. Patient will need to be restarted on Tegretol. Will check with pharmacy to find out equivalent dose of Tegretol IV. Patient currently taking 200 mg 5 times a day. Neurology plans to decrease Tegretol by 100 mg of total dose per day. Patient was not able to get Dobbhoff yesterday. Will need to continue to reassess swallowing. Patient at risk for aspiration. Will need to discuss with family about the possible need of PEG tube if this is required. May need to consider TPN. Advanced directives address in detail with family. Patient DNR. Blood and urine cultures pending. I will turn the service over to Dr. Franklin tomorrow. I will go over the plan of care with her. Recent diarrhea suspect C diff colitis: Patient with recent diarrhea and antibiotic use. Await C diff culture results if positive patient will require vancomycin orally. Seizure disorder with elevated Tegretol level: Tegretol level improved. Tegretol can be restarted but at 100 mg less of total dose as per neurology. Pharmacy to calculate equivalent dose of Tegretol IV. Patient continues with IV Keppra. Hypokalemia: Will replace electrolytes. Will monitor closely. Anemia likely of chronic disease: Will continue to monitor CBC. Patient may require transfusion if hemoglobin less than 7.0 Poor IV access: PICC line in place. Malnutrition: Will consult dietary to further evaluate. May need to start TPN as patient was not able to tolerate Dobbhoff placement. Will need discuss with family about the possible need of PEG tube in the near future if dysphagia is noted. Hypertension: Will provide medication as needed. Will monitor closely. Echo was technically difficult.
[2018-06-19] MEDS: Levofloxacin 750mg IV 750 MG/150 ML BAG IV SCH (08:33)
[2018-06-19] MEDS: D5W 1,000 ML IV SCH ×2 (09:00→22:20)
[2018-06-19] MEDS: TOPIRAMATE 100 MG TAB PO SCH ×2 (09:00→20:59)
[2018-06-19] MEDS ORDERED: PHENOBARBITAL 130 MG/ML INJ IV SCH ×2 (09:00→10:49)
[2018-06-19] MEDS ORDERED: VANCOMYCIN 1.5 GM in NA CHLORIDE 0.9% 500 ML IVPB ONE ×2 (09:00→14:00)
[2018-06-19] MEDS: VALPROATE SODIUM INJ 500 MG in NA CHLORIDE 0.9% 100 ML IV SCH ×2 (10:08→20:52)
[2018-06-19] MEDS: levETIRAcetam 750 MG in NA CHLORIDE 0.9% 100 ML IV SCH ×2 (11:17→20:52)
--- NOTE | 2018-06-19 12:04 | P.PN ---
Subjective Date of Service: 06/19/18 Primary Care Provider: Eric Lozoya NP; Neurology-Dr. Lopez; Card-Dr. Ramírez Chief Complaint: Patient on a ventilator Patient seen and examined at bedside with RN. Chart reviewed. Case discussed with pulmonology and Neurology. Patient continues to be intubated. Has had couple a seizures overnight as well. No complaints to offer overnight otherwise. Review of Systems 10-point ROS is otherwise unremarkable Physical Examination - Vital Signs Temperature: 99.1 F Blood Pressure: 81/53 Pulse: 119 Respirations: 13 Pulse Ox (%): 99 - Physical Exam General: Other (Currently intubated and sedated) HEENT: Atraumatic, PERRLA, EOMI Neck: Supple, JVD not distended Respiratory: Normal air movement, Crackles/rales Cardiovascular: Regular rate/rhythm, Normal S1 S2 Gastrointestinal: Normal bowel sounds, Soft and benign, Non-distended, No tenderness Musculoskeletal: No tenderness, Contractures Integumentary: No rashes Lymphatics: No axilla or inguinal lymphadenopathy - Studies Microbiology Data (last 24 hrs): 06/17/18 02:05 Catheterized Urine [place] Count - Final 06/17/18 02:05 Catheterized Urine - Final 06/16/18 07:22 Blood - Blood Anaerobic Blood Culture - Final Medications List Reviewed: Yes Assessment And Plan - Plan Assessment/Plan: 1. Acute encephalopathy likely multifactorial with sepsis, cerebral palsy, CVA with encephalomalacia -At baseline patient is nonverbal -head CT in the ER negative for any acute abnormality -neurology consulted appreciated recommendations at this time -started on IV Keppra, phenobarbital, and Depakote. -EEG consistent with active seizure -MRI of the brain pending at this time -currently pending improvement. -will treat underlying condition as well. -patient may need placement on discharge 2. Recent diarrhea suspect C diff colitis -Awaiting C difficile culture at this time 3. Seizure disorder -see 1. 4. Hypokalemia stable 5. Anemia likely of chronic disease 6. Malnutrition -dietary consult -will need TPN if patient continues to be intubated for feeding 7. Hypertension 8. Acute respiratory distress: -patient currently intubated and sedated -pulmonology consulted appreciated recommendations at this time -continue to monitor med changes with ABG Disposition: Currently awaiting clinical improvement at this time. Will follow up with neurology with further recommendations at this time. Discharge Plan: Other Plan to discharge in: Greater than 2 days - Code Status/Comfort Care Code Status Assessed: Yes Critical Care: Yes
[2018-06-19] MEDS ORDERED: VECURONIUM 10 MG/VIAL IV ONE (12:37)
[2018-06-19] MEDS ORDERED: WATER FOR INJ,STERILE 10 ML IV ONE (12:37)
[2018-06-19] MEDS: THIAMINE HCL IV SCH (13:33)
[2018-06-19] MEDS: FOLIC ACID IV SCH (13:33)
[2018-06-19] MEDS: NACHLORIDE 0.45% IV SCH (13:33)
[2018-06-19] MEDS: ENOXAPARIN 40 MG/0.4 ML SQ SCH (17:42)
[2018-06-19] MEDS ORDERED: VANCOMYCIN/NS 1 gm 1 GM/250 ML BAG IV SCH ×2 (18:00→21:00)
[2018-06-19] MEDS: LATANOPROST 0.005% OPTH SCH (20:51)
--- NOTE | 2018-06-20 02:27 | P.PN ---
Subjective Date of Service: 06/18/18 Patient with status epilepticus, and will be placed on phenobarbital. Will require intubation. Dr. More from anesthesia available to assist with intubation. Review of Systems is unable to be obtained Physical Examination - Vital Signs Temperature: 98.8 F Blood Pressure: 104/75 Pulse: 95 Respirations: 12 Pulse Ox (%): 100 - Physical Exam General: Alert, In no apparent distress, Oriented x3 Respiratory: Clear to auscultation bilaterally, Normal air movement Cardiovascular: Regular rate/rhythm, Normal S1 S2, No murmurs Gastrointestinal: Normal bowel sounds, Soft and benign, Non-distended, No tenderness Musculoskeletal: No clubbing, No swelling Neurological: Normal gait, Normal speech, Normal strength at 5/5 x4 extr, Normal tone, Sensation intact, Cranial nerves 3-12 intact - Studies Microbiology Data (last 24 hrs): 06/17/18 02:05 Catheterized Urine [place] Count - Final 06/17/18 02:05 Catheterized Urine - Final Medications List Reviewed: Yes Assessment & Plan - Problems (Diagnosis) (1) Bruxism (teeth grinding) Onset Date: 06/18/18 Current Visit: Yes Status: Acute (2) Cerebral palsy Current Visit: Yes Status: Acute (3) Developmental disability Onset Date: 06/18/18 Current Visit: Yes Status: Acute (4) Nonrheumatic mitral (valve) insufficiency Onset Date: 06/18/18 Current Visit: Yes Status: Acute (5) Overweight (BMI 25.0-29.9) Onset Date: 06/18/18 Current Visit: Yes Status: Acute (6) Visual impairment Onset Date: 06/18/18 Current Visit: Yes Status: Acute (7) Status epilepticus Current Visit: Yes Status: Acute - Plan 1. Respiratory distress secondary to status epilepticus; will require mechanical ventilation 2. Phenobarbital IV 3. GI/DVT prophylaxis Discharge Plan: Home Plan to discharge in: 24 Hours - Advance Directives Does patient have a Living Will: No Does patient have a Durable POA for Healthcare: No - Code Status/Comfort Care Code Status: Do Not Resuscitate (Patient's family wants to intubate to assist in stopping seizures and trying phenobarbital for the time being) Critical Care: Yes Time Spent Managing PTS Care (In Minutes): 45
[2018-06-20] MEDS: VANCOMYCIN/NS 1 gm 1 GM/250 ML BAG IV SCH ×2 (02:32→14:53)
[2018-06-20 05:22] LABS: Absolute Lymphocytes (CBC) 1.6 K/uL (0.7-4.9); Basophils % 0.3 % (0-1.3); Eosinophils % 1.6 % (0-4.4); Hematocrit 25.5 % (36.0-45.0); Lymphocytes % 9.3 % (15.3-44.8); MCH 24.9 pg (27.0-35.0); MCV 75.4 fL (80-100); MPV 8.5 fL (7.6-11.3); Monocytes % 5.6 % (3.3-12.3); RBC Red Blood Cell Count 3.38 M/uL (3.86-4.86)
[2018-06-20 05:35] LABS: BUN Blood Urea Nitrogen 2 mg/dL (7-18); Bicarbonate 24 mmol/L (21-32); Glucose Level 65 mg/dL (74-106); Magnesium 2.1 mg/dL (1.8-2.4); Sodium Level 157 mmol/L (136-145)
[2018-06-20 05:46] LABS: Potassium 2.6 mmol/L (3.5-5.1)
[2018-06-20] MEDS: D5W 1,000 ML IV SCH ×3 (06:22→17:24)
[2018-06-20] MEDS: Levofloxacin 750mg IV 750 MG/150 ML BAG IV SCH (07:04)
[2018-06-20] MEDS: KCL 20 MEQ/100 mL IVPB 20 MEQ/100 ML BAG IV SCH ×5 (07:04→18:25)
[2018-06-20] MEDS ORDERED: PHENOBARBITAL IV SCH ×2 (09:00→19:06)
[2018-06-20] MEDS ORDERED: NA CHLORIDE 0.9% IV SCH ×2 (09:00→19:06)
[2018-06-20] MEDS: Brinzolamide/Brimonidine Tart (Simbrinza) 1%-0.2% Eye Drops EACH EYE SCH ×2 (09:26→21:48)
[2018-06-20] MEDS: PANTOPRAZOLE 40 MG INJ IVP SCH (09:26)
[2018-06-20] MEDS: VALPROATE SODIUM INJ 500 MG in NA CHLORIDE 0.9% 100 ML IV SCH (09:29)
[2018-06-20] MEDS: levETIRAcetam 750 MG in NA CHLORIDE 0.9% 100 ML IV SCH ×2 (09:32→21:49)
[2018-06-20] MEDS: TOPIRAMATE 100 MG TAB PO SCH ×2 (09:38→21:49)
--- NOTE | 2018-06-20 10:47 | RAD REPORT ---
EXAM DESCRIPTION: RAD - Chest Single View - 06/20/2018 10:38 am CLINICAL HISTORY: Respiratory failure pneumonia Chest pain. COMPARISON: Chest Single View dated 06/18/2018; Chest Single View dated 06/17/2018; Chest Single View dated 06/17/2018; CHEST SINGLE VIEW dated 05/07/2012 FINDINGS: Portable technique limits examination quality. Tip of the ET tube is above the doris. Right-sided PICC line has tip in left brachiocephalic vein. B ilateral pulmonary opacities are noted, slightly progressive since the comparative study. The heart i s normal in size.Thoracolumbar scoliosis is present. Enteric tube descends in the stomach. IMPRESSION: Mild worsening of lung aeration since the comparative study.
--- NOTE | 2018-06-20 11:35 | P.PN ---
Subjective Date of Service: 06/20/18 Primary Care Provider: Eric Lozoya NP; Neurology-Dr. Lopez; Card-Dr. Ramírez Chief Complaint: Patient on a ventilator Patient seen and examined at bedside with RN. Chart reviewed. Case discussed with pulmonology and Neurology. Patient continues to be intubated. No seizure activity noted overnight. Patient currently continues to be on a phenobarbital drip along with propofol drip as well. Review of Systems 10-point ROS is otherwise unremarkable Physical Examination - Vital Signs Temperature: 97.6 F Blood Pressure: 90/58 Pulse: 104 Respirations: 12 Pulse Ox (%): 100 - Physical Exam General: Other (Intubated and sedated) HEENT: Atraumatic Neck: Supple, JVD not distended Respiratory: Normal air movement, Crackles/rales, Expiratory wheezes, Inspiratory wheezes Cardiovascular: Regular rate/rhythm, Normal S1 S2 Gastrointestinal: Normal bowel sounds, Soft and benign, Non-distended, No tenderness Musculoskeletal: No tenderness, Contractures Integumentary: No rashes Lymphatics: No axilla or inguinal lymphadenopathy - Studies Microbiology Data (last 24 hrs): 06/17/18 02:05 Catheterized Urine [place] Count - Final 06/17/18 02:05 Catheterized Urine - Final Medications List Reviewed: Yes Assessment And Plan - Plan Assessment/Plan: 1. Acute encephalopathy likely multifactorial with sepsis, cerebral palsy, CVA with encephalomalacia -At baseline patient is nonverbal -head CT in the ER negative for any acute abnormality -MRI with no acute abnormality with chronic changes noted -neurology consulted appreciated recommendations at this time -started on IV Keppra, phenobarbital, and Depakote. -EEG consistent with active seizure -currently pending improvement. 2. Sepsis -most likely secondary to bilateral pneumonia. -leukocytosis noted today. -started patient on Zosyn and is continued on vancomycin -the sputum cultures pending at this time as well 3. Pneumonia -see 2. 4. Seizure disorder -see 1. 5. Anemia likely of chronic disease 6. Malnutrition -dietary consult -will need TPN if patient continues to be intubated for feeding 7. Hypertension 8. Acute respiratory distress: -patient currently intubated and sedated would try to wean off of ventilator once patient is off of the phenobarb per Dr. -pulmonology consulted appreciated recommendations at this time Disposition: Currently awaiting clinical improvement at this time. Will follow up with neurology with further recommendations at this time on continuation of phenobarbital. Discharge Plan: Other Plan to discharge in: Greater than 2 days - Code Status/Comfort Care Code Status Assessed: Yes Critical Care: Yes
[2018-06-20] MEDS: PIPER/TAZO/NS 3.375gm 3.375 GM/100 ML BAG IVPB SCH ×2 (12:23→19:30)
[2018-06-20] MEDS: NACHLORIDE 0.45% IV SCH (12:24)
[2018-06-20] MEDS: THIAMINE HCL IV SCH (12:24)
[2018-06-20] MEDS: FOLIC ACID IV SCH (12:24)
[2018-06-20 14:34] LABS: BUN Blood Urea Nitrogen 3 mg/dL (7-18); Bicarbonate 23 mmol/L (21-32); Glucose Level 113 mg/dL (74-106); Potassium 3.2 mmol/L (3.5-5.1); Sodium Level 156 mmol/L (136-145)
[2018-06-20] MEDS: ENOXAPARIN 40 MG/0.4 ML SQ SCH (17:20)
[2018-06-20] MEDS: PROPOFOL 1,000 MG/100 ML VIAL IV PRN (18:26)
--- NOTE | 2018-06-20 20:39 | PN ---
Subjective: Overnight, the patient did not have more seizures, last seizure was around 5 p.m. yester day. She is now on Depakote, Keppra, phenobarbital, and on a propofol drip that is being titrated do wn. She does make purposeful moves towards pulling her ventilatory tube out. Objective: Vital Signs: Blood pressure 90/58, pulse 104, respiratory rate 20, temperature 97.6, ox saturation 100%. General: Ms. Acosta has indicated does have propofol drip, phenobarbital, Keppra, and Dilantin on [address]. She does not have any new findings on examination in terms of neurological deficits. Laboratory Studies: White blood cell count is elevated at 16.9 with neutrophils being 83.2. Clay Molder gómez shows sodium 156, potassium 3.2, chloride 123, glucose 125, calcium 8.4. Her blood level of abel proic acid is 40. Phenobarbital level is 23.5. Tegretol level is 10.3. Keppra level is 2.5. Assessment: Dave is a 32-year-old patient with status epilepticus in the setting of pneumonia with high white blood cell count, vascular dementia, history of multiple strokes, and medical refractory c omplex partial seizures. Plan: 1.We will wean down phenobarbital starting 24 hours after last seizure that is this evening around 6 o'clock. We will go from 100 mg in 24 hours to 50 mg in 24 hours. 2.Continue Keppra, may increase if the seizures occur from 750 twice a day to 1000 mg twice a day. 3.Also consider increasing Depakote, which was just increased from 500 twice a day to 750 twice a da y up to a 1000 twice a day if more seizures occur. 4.Give Ativan as needed for seizures and for agitation as well. 5.Aggressive management of her urinary tract infection as per primary team. NANCY/BETY Voice ID: [id number] Report ID: [id number]
[2018-06-20] MEDS: LATANOPROST 0.005% OPTH SCH (21:48)
[2018-06-20] MEDS: NA CHLORIDE 0.9% IV SCH (21:48)
[2018-06-20] MEDS: VALPROATE SODIUM IV SCH (21:48)
[2018-06-20] MEDS ORDERED: POTASSIUM 25 MEQ EFFERV TAB PO ONE (23:40)
[2018-06-21] MEDS: VANCOMYCIN/NS 1 gm 1 GM/250 ML BAG IV SCH (01:59)
[2018-06-21] MEDS: PIPER/TAZO/NS 3.375gm 3.375 GM/100 ML BAG IVPB SCH ×2 (02:00→14:24)
[2018-06-21] MEDS: D5W 1,000 ML IV SCH ×5 (02:00→20:22)
[2018-06-21 04:56] LABS: Absolute Lymphocytes (CBC) 1.9 K/uL (0.7-4.9); Absolute Monocytes 0.8 K/uL (0.1-1.3); Absolute Neutrophil 11.6 K/uL (1.8-8.0); Basophils % 0.3 % (0-1.3); Eosinophils % 1.3 % (0-4.4); Hematocrit 22.7 % (36.0-45.0); Lymphocytes % 13.1 % (15.3-44.8); MCH 25.2 pg (27.0-35.0); MCV 74.5 fL (80-100); MPV 8.3 fL (7.6-11.3); Monocytes % 5.6 % (3.3-12.3); RBC Red Blood Cell Count 3.05 M/uL (3.86-4.86)
[2018-06-21 05:24] LABS: BUN Blood Urea Nitrogen 4 mg/dL (7-18); Bicarbonate 22 mmol/L (21-32); Glucose Level 78 mg/dL (74-106); Magnesium 2.2 mg/dL (1.8-2.4); Potassium 3.6 mmol/L (3.5-5.1); Sodium Level 154 mmol/L (136-145)
[2018-06-21] MEDS ORDERED: NA CHLORIDE 0.9% 50 ML ONE (05:34)
[2018-06-21] MEDS ORDERED: PHENOBARBITAL 130 MG/ML INJ IV ONE (05:34)
[2018-06-21] MEDS ORDERED: POTASSIUM 25 MEQ EFFERV TAB PO ONE (08:00)
[2018-06-21] MEDS: Brinzolamide/Brimonidine Tart (Simbrinza) 1%-0.2% Eye Drops EACH EYE SCH ×2 (08:24→20:23)
[2018-06-21] MEDS: TOPIRAMATE 100 MG TAB PO SCH ×2 (08:24→20:23)
[2018-06-21] MEDS: VALPROATE SODIUM IV SCH ×2 (08:25→20:23)
[2018-06-21] MEDS: NA CHLORIDE 0.9% IV SCH (08:25)
[2018-06-21] MEDS: PANTOPRAZOLE 40 MG INJ IVP SCH (08:26)
[2018-06-21] MEDS: levETIRAcetam 750 MG in NA CHLORIDE 0.9% 100 ML IV SCH (08:46)
[2018-06-21] MEDS: FOLIC ACID IV SCH (08:47)
[2018-06-21] MEDS: NACHLORIDE 0.45% IV SCH (08:47)
[2018-06-21] MEDS: THIAMINE HCL IV SCH (08:47)
[2018-06-21] MEDS ORDERED: NA CHLORIDE 0.9% IV SCH ×2 (09:00→15:00)
[2018-06-21] MEDS ORDERED: PHENOBARBITAL IV SCH ×2 (09:00→15:00)
--- NOTE | 2018-06-21 09:46 | P.PN ---
Subjective Date of Service: 06/21/18 Primary Care Provider: Eric Lozoya NP; Neurology-Dr. Lopez; Card-Dr. Ramírez Chief Complaint: Respiratory failure seizure Patient is still having seizures on phenobarbital on propofol no other change on a ventilator oxygenation vital signs all stable Review of Systems is unable to be obtained Physical Examination - Vital Signs Temperature: 98 F Blood Pressure: 135/79 Pulse: 97 Respirations: 16 Pulse Ox (%): 100 - Physical Exam General: Unresponsive Respiratory: Clear to auscultation bilaterally Cardiovascular: Normal pulses, Normal S1 S2 - Studies Medications List Reviewed: Yes Assessment & Plan - Problems (Diagnosis) (1) Pneumonia Onset Date: 06/18/18 Current Visit: Yes Status: Acute Plan: Possible pneumonia white count is declining patient is on Zosyn vancomycin high risk for aspiration cultures are so far negative Qualifiers: Pneumonia type: due to unspecified organism (2) Hypernatremia Current Visit: Yes Status: Acute Plan: Patient is still hypernatremic increases D5 water 250 cc an hr Physician Review Additional Text: Impression: Acute encephalopathy likely multifactorial likely with sepsis secondary to left lower lobe pneumonia with history of cerebral palsy/History of CVA with encephalomalacia/Patient nonverbal/Bruxism Recent diarrhea suspect C diff colitis Seizure disorder with elevated Tegretol level Hypokalemia Anemia likely of chronic disease Poor IV access Malnutrition Hypertension Plan: Acute encephalopathy likely multifactorial likely with sepsis secondary to left lower lobe pneumonia with history of cerebral palsy/History of CVA with encephalomalacia/Patient nonverbal/Bruxism: Will continue with IV fluids. Encephalopathy likely multifactorial related to sepsis-pneumonia. Continue with IV Levaquin. Patient also has a history of cerebral palsy, seizure disorder and previous CVA with noted encephalomalacia. CT head shows no acute stroke. Case discussed with Neurology. Will continue with IV Keppra. Patient will need to be restarted on Tegretol. Will check with pharmacy to find out equivalent dose of Tegretol IV. Patient currently taking 200 mg 5 times a day. Neurology plans to decrease Tegretol by 100 mg of total dose per day. Patient was not able to get Dobbhoff yesterday. Will need to continue to reassess swallowing. Patient at risk for aspiration. Will need to discuss with family about the possible need of PEG tube if this is required. May need to consider TPN. Advanced directives address in detail with family. Patient DNR. Blood and urine cultures pending. I will turn the service over to Dr. Franklin tomorrow. I will go over the plan of care with her. Recent diarrhea suspect C diff colitis: Patient with recent diarrhea and antibiotic use. Await C diff culture results if positive patient will require vancomycin orally. Seizure disorder with elevated Tegretol level: Tegretol level improved. Tegretol can be restarted but at 100 mg less of total dose as per neurology. Pharmacy to calculate equivalent dose of Tegretol IV. Patient continues with IV Keppra. Hypokalemia: Will replace electrolytes. Will monitor closely. Anemia likely of chronic disease: Will continue to monitor CBC. Patient may require transfusion if hemoglobin less than 7.0 Poor IV access: PICC line in place. Malnutrition: Will consult dietary to further evaluate. May need to start TPN as patient was not able to tolerate Dobbhoff placement. Will need discuss with family about the possible need of PEG tube in the near future if dysphagia is noted. Hypertension: Will provide medication as needed. Will monitor closely. Echo was technically difficult.
[2018-06-21] MEDS ORDERED: NA CHLORIDE 0.9% 100 ML ONE (10:36)
[2018-06-21] MEDS ORDERED: VANCOMYCIN 1.25 GM in NA CHLORIDE 0.9% 250 ML IV SCH (14:00)
[2018-06-21] MEDS ORDERED: IPRATROPIUM BROM 0.5MG/2.5ML NEB PRN (14:13)
[2018-06-21] MEDS ORDERED: LEVALBUTEROL 1.25 MG/3 ML NEB NEB PRN (14:14)
--- NOTE | 2018-06-21 15:00 | P.PN ---
Subjective Date of Service: 06/21/18 Primary Care Provider: Eric Lozoya NP; Neurology-Dr. Lopez; Card-Dr. Ramírez Chief Complaint: Respiratory failure seizure Patient seen and examined at bedside with RN. Chart reviewed. Case discussed with pulmonology and Neurology. Patient continues to be intubated. Seizures noted overnight. Patient currently continues to be on a phenobarbital drip along with propofol drip as well. Review of Systems 10-point ROS is otherwise unremarkable Physical Examination - Vital Signs Temperature: 98 F Blood Pressure: 113/44 Pulse: 96 Respirations: 16 Pulse Ox (%): 98 - Physical Exam General: Other (Intubated and sedated at this time) HEENT: Atraumatic, PERRLA, EOMI Neck: Supple, JVD not distended Respiratory: Normal air movement, Crackles/rales, Expiratory wheezes, Inspiratory wheezes Cardiovascular: Regular rate/rhythm, Normal S1 S2 Gastrointestinal: Normal bowel sounds, Soft and benign, Non-distended, No tenderness Musculoskeletal: No tenderness Integumentary: No rashes Neurological: Abnormal strength, Abnormal reflexes, Abnormal affect Lymphatics: No axilla or inguinal lymphadenopathy - Studies Medications List Reviewed: Yes Assessment And Plan - Plan Assessment/Plan: 1. Acute encephalopathy likely multifactorial with sepsis, cerebral palsy, CVA with encephalomalacia -At baseline patient is nonverbal -Head CT in the ER negative for any acute abnormality -MRI with no acute abnormality with chronic changes noted -neurology consulted appreciated recommendations at this time -started on IV Keppra, phenobarbital, and Depakote. -EEG consistent with active seizure -currently pending improvement. -Still continues to have Seizure. Will go up on the phenobarbital ggt 2. Sepsis -most likely secondary to bilateral pneumonia. -leukocytosis noted to trending down today. -started patient on Zosyn and is continued on vancomycin -the sputum cultures pending at this time as well 3. Pneumonia -see 2. 4. Seizure disorder -see 1. 5. Anemia likely of chronic disease -Hgb is 7.7 today. will transfuse 6. Malnutrition -dietary consult -will need TPN if patient continues to be intubated for feeding 7. Hypertension 8. Acute respiratory distress: -patient currently intubated and sedated would try to wean off of ventilator once patient is off of the phenobarb per Dr. Pickett -pulmonology consulted appreciated recommendations at this time 9. Hypernatremia with Hypercholiremia \ -2.2 to dehydration -D5W at 250 cc/hr -Increase free water flushes Disposition: Currently awaiting clinical improvement at this time. Will follow up with neurology with further recommendations at this time on continuation of phenobarbital. Discharge Plan: Other Plan to discharge in: Greater than 2 days - Code Status/Comfort Care Code Status Assessed: Yes Critical Care: Yes
[2018-06-21] MEDS: ENOXAPARIN 40 MG/0.4 ML SQ SCH (16:25)
[2018-06-21] MEDS: LORazepam 2 MG/ML VIAL IV PRN (16:26)
[2018-06-21 17:38] LABS: Hematocrit 28.5 % (36.0-45.0)
--- NOTE | 2018-06-21 18:01 | RAD REPORT ---
EXAM DESCRIPTION: RAD - Chest Single View - 06/21/2018 5:32 pm CLINICAL HISTORY: Shortness of breath COMPARISON: June 20 TECHNIQUE: AP portable chest image was obtained 1719 hours . FINDINGS: Endotracheal tube remains in place. NG tube is still in place with tip below the diaphragm . Lung volumes are low. Patchy opacification is present in the left midlung field. Central vasculatur e and lung markings are mildly prominent. Right lung field is better aerated than on prior study. Hea rt size is normal. No pneumothorax or large pleural effusions seen. No acute bony abnormality seen. N o acute aortic findings suspected. IMPRESSION: No significant failure or volume overload findings. Lung markings and vasculature centra lly have improved. Patchy left mid lung field opacification is present possibly obscured on the prior study due to the n eurostimulator battery pack. This could be atelectasis or focal pneumonia.
[2018-06-21 18:04] LABS: BUN Blood Urea Nitrogen 4 mg/dL (7-18); Bicarbonate 20 mmol/L (21-32); Glucose Level 141 mg/dL (74-106); Potassium 3.4 mmol/L (3.5-5.1); Sodium Level 154 mmol/L (136-145)
[2018-06-21] MEDS: levETIRAcetam 750 MG in D5W 100 ML IV SCH (20:22)
[2018-06-21] MEDS: D5W IV SCH ×2 (20:23→20:25)
[2018-06-21] MEDS: LATANOPROST 0.005% OPTH SCH (20:23)
[2018-06-21] MEDS: PIPER TAZO IV SCH (20:25)
[2018-06-21] MEDS ORDERED: VALPROATE SODIUM INJ 1,000 MG in NA CHLORIDE 0.9% 100 ML IV SCH (21:00)
[2018-06-22] MEDS: LORazepam 2 MG/ML VIAL IV PRN ×5 (01:18→20:52)
[2018-06-22] MEDS: VANCOMYCIN 1.25 GM in D5W 250 ML IV SCH ×2 (02:13→14:00)
[2018-06-22] MEDS: D5W 1,000 ML IV SCH ×5 (02:18→22:57)
[2018-06-22] MEDS: PIPER TAZO IV SCH ×3 (04:00→20:51)
[2018-06-22] MEDS: D5W IV SCH ×5 (04:00→20:51)
[2018-06-22] MEDS ORDERED: PHENOBARBITAL IV SCH ×2 (06:00→15:00)
[2018-06-22] MEDS ORDERED: NA CHLORIDE 0.9% IV SCH (06:00)
[2018-06-22 06:47] LABS: Absolute Lymphocytes (CBC) 1.6 K/uL (0.7-4.9); Absolute Monocytes 0.9 K/uL (0.1-1.3); Absolute Neutrophil 12.1 K/uL (1.8-8.0); Basophils % 0.4 % (0-1.3); Eosinophils % 1.4 % (0-4.4); Hematocrit 26.5 % (36.0-45.0); MCH 26.9 pg (27.0-35.0); MCV 76.1 fL (80-100); MPV 8.7 fL (7.6-11.3); Monocytes % 6.1 % (3.3-12.3); RBC Red Blood Cell Count 3.48 M/uL (3.86-4.86)
[2018-06-22 07:01] LABS: BUN Blood Urea Nitrogen 2 mg/dL (7-18); Bicarbonate 21 mmol/L (21-32); Glucose Level 154 mg/dL (74-106); Magnesium 2.1 mg/dL (1.8-2.4); Potassium 3.1 mmol/L (3.5-5.1); Sodium Level 145 mmol/L (136-145)
[2018-06-22] MEDS ORDERED: POTASSIUM 25 MEQ EFFERV TAB PO ONE ×2 (07:12→17:22)
[2018-06-22] MEDS: PROPOFOL 1,000 MG/100 ML VIAL IV PRN (07:35)
--- NOTE | 2018-06-22 08:06 | RAD REPORT ---
EXAM DESCRIPTION: RAD - Chest Single View - 06/22/2018 7:03 am CLINICAL HISTORY: check for fluid overload Chest pain. COMPARISON: Chest Single View dated 06/21/2018; Chest Single View dated 06/20/2018; Chest Single [place] dated 06/18/2018; Chest Single View dated 06/17/2018 FINDINGS: Portable technique limits examination quality. Tip of the ET tube is above the doris. The right sided PICC line tip left brachiocephalic vein. Bila teral pulmonary opacities are present likely pulmonary edema or pneumonia and appear mildly progressi ve.Cardiac size is mildly prominent. Enteric tube is in the stomach. IMPRESSION: Mild worsening in lung aeration since the comparative study.
[2018-06-22] MEDS: VALPROATE SODIUM IV SCH (09:06)
[2018-06-22] MEDS: FOLIC ACID IV SCH (09:07)
[2018-06-22] MEDS: levETIRAcetam 750 MG in D5W 100 ML IV SCH (09:07)
[2018-06-22] MEDS: THIAMINE HCL IV SCH (09:07)
[2018-06-22] MEDS: Brinzolamide/Brimonidine Tart (Simbrinza) 1%-0.2% Eye Drops EACH EYE SCH ×2 (09:08→20:53)
[2018-06-22] MEDS: TOPIRAMATE 100 MG TAB PO SCH ×2 (09:08→20:52)
[2018-06-22 10:52] LABS: Anisocytosis 1+; Blood Morphology Comment NOTED (NOT SEEN); Platelet Estimate INCR; Poikilocytosis 1+; Target Cells 1+; Urine White Blood Cell Casts OK
--- NOTE | 2018-06-22 11:57 | P.PN ---
Subjective Date of Service: 06/22/18 Primary Care Provider: Eric Lozoya NP; Neurology-Dr. Lopez; Card-Dr. Ramírez Chief Complaint: Respiratory failure seizure Patient seen and examined at bedside with RN. Chart reviewed. Case discussed with pulmonology and Neurology. Patient continues to be intubated. Seizures noted overnight. Patient currently continues to be on a phenobarbital drip along with propofol drip as well. Review of Systems 10-point ROS is otherwise unremarkable Physical Examination - Vital Signs Temperature: 97.8 F Blood Pressure: 107/72 Pulse: 106 Respirations: 12 Pulse Ox (%): 96 - Physical Exam General: Other (intubated and sedated) HEENT: Atraumatic, PERRLA, EOMI Neck: Supple, JVD not distended Respiratory: Normal air movement, Crackles/rales, Expiratory wheezes, Inspiratory wheezes Cardiovascular: Regular rate/rhythm, Normal S1 S2 Gastrointestinal: Normal bowel sounds, Soft and benign, Non-distended, No tenderness Musculoskeletal: No tenderness Integumentary: No rashes Neurological: Abnormal strength, Abnormal reflexes Lymphatics: No axilla or inguinal lymphadenopathy - Studies Microbiology Data (last 24 hrs): 06/16/18 07:22 Blood - Blood Aerobic Blood Culture - Final No growth in 5 days. 06/16/18 07:22 Blood - Blood Anaerobic Blood Culture - Final 06/17/18 02:40 Blood - Blood Aerobic Blood Culture - Final No growth in 5 days. 06/17/18 02:40 Blood - Blood Anaerobic Blood Culture - Final Medications List Reviewed: Yes Assessment And Plan - Plan Assessment/Plan: 1. Acute encephalopathy likely multifactorial with sepsis, cerebral palsy, CVA with encephalomalacia -At baseline patient is nonverbal -Head CT in the ER negative for any acute abnormality -MRI with no acute abnormality with chronic changes noted -neurology consulted appreciated recommendations at this time -started on IV Keppra, phenobarbital, and Depakote. -EEG consistent with active seizure -currently pending improvement. -Still continues to have Seizure. Will go up on the phenobarbital ggt 2. Sepsis -most likely secondary to bilateral pneumonia. -leukocytosis noted to trending down today. -started patient on Zosyn and is continued on vancomycin -the sputum cultures pending at this time as well 3. Pneumonia -see 2. 4. Seizure disorder -see 1. 5. Anemia likely of chronic disease -Hgb is 7.7 today. will transfuse 6. Malnutrition -dietary consult -will need TPN if patient continues to be intubated for feeding 7. Hypertension 8. Acute respiratory distress: -patient currently intubated and sedated would try to wean off of ventilator once patient is off of the phenobarb per Dr. Cullen -pulmonology consulted appreciated recommendations at this time 9. Hypernatremia with Hypercholiremia -Improved today -2.2 to dehydration -decrease D5W at 150 cc/hr -Increase free water flushes Disposition: Currently awaiting clinical improvement at this time. Will follow up with neurology with further recommendations at this time on continuation of phenobarbital. Discharge Plan: Other Plan to discharge in: Greater than 2 days - Code Status/Comfort Care Code Status Assessed: Yes Critical Care: No
[2018-06-22] MEDS ORDERED: SODIUM CHLORIDE 0.9% 10ML INJ IV PRN (12:00)
[2018-06-22] MEDS ORDERED: D5W IV SCH (15:00)
[2018-06-22] MEDS: VANCOMYCIN 1.5 GM in Dextrose 5%-Water 500 ML IV SCH (15:25)
[2018-06-22 15:41] LABS: BUN Blood Urea Nitrogen 3 mg/dL (7-18); Bicarbonate 22 mmol/L (21-32); Glucose Level 184 mg/dL (74-106); Potassium 3.4 mmol/L (3.5-5.1); Sodium Level 150 mmol/L (136-145)
[2018-06-22] MEDS: ENOXAPARIN 40 MG/0.4 ML SQ SCH (17:07)
[2018-06-22] MEDS ORDERED: JEVITY 1.5 CAL LIQUID 1,000 ML BOT FT PRN (19:00)
[2018-06-22] MEDS: levETIRAcetam 500 MG/5 ML OSYR PO SCH (20:51)
[2018-06-22] MEDS: VALPROIC ACID 250 MG/5 ML OSYR PO SCH (20:52)
[2018-06-22] MEDS: PANTOPRAZOLE 40 MG INJ IVP SCH (20:52)
[2018-06-22] MEDS: LATANOPROST 0.005% OPTH SCH (20:53)
[2018-06-22] MEDS ORDERED: VALPROIC ACID 250 MG/5 ML OSYR PO SCH (21:00)
[2018-06-23 01:37] LABS: BUN Blood Urea Nitrogen 3 mg/dL (7-18); Bicarbonate 21 mmol/L (21-32); Glucose Level 299 mg/dL (74-106); Potassium 3.5 mmol/L (3.5-5.1); Sodium Level 145 mmol/L (136-145)
[2018-06-23] MEDS: JEVITY 1.5 CAL LIQUID 1,000 ML BOT FT PRN (02:00)
[2018-06-23] MEDS: VANCOMYCIN 1.5 GM in Dextrose 5%-Water 500 ML IV SCH ×2 (02:10→15:14)
[2018-06-23] MEDS ORDERED: POTASSIUM 25 MEQ EFFERV TAB PO ONE (03:18)
[2018-06-23] MEDS: PROPOFOL 1,000 MG/100 ML VIAL IV PRN ×2 (03:52→09:14)
[2018-06-23] MEDS: LORazepam 2 MG/ML VIAL IV PRN ×4 (03:52→18:35)
[2018-06-23] MEDS: PIPER TAZO IV SCH ×3 (03:56→21:59)
[2018-06-23] MEDS: D5W IV SCH ×4 (03:56→21:59)
[2018-06-23] MEDS: D5W 1,000 ML IV SCH ×3 (05:09→12:09)
[2018-06-23] MEDS ORDERED: GLUCAGON 1 MG/VIAL IM PRN (05:37)
[2018-06-23] MEDS ORDERED: D50W 25 GM/50 ML SYRINGE IV PRN (05:37)
[2018-06-23] MEDS ORDERED: INSULIN GLARGINE 100 UNITS/ML SQ ONE (05:38)
--- NOTE | 2018-06-23 08:07 | RAD REPORT ---
EXAM DESCRIPTION: RAD - Chest Single View - 06/23/2018 7:33 am CLINICAL HISTORY: Intubation, respiratory distress COMPARISON: June 22, June 21 TECHNIQUE: AP portable chest image was obtained 0619 hours . FINDINGS: No change in positioning of the endotracheal tube or NG tube. Right upper extremity PICC l ine is still in place. Tip is in the brachiocephalic vein Low lung volumes remain. Interstitial markings are mildly prominent. Medial left base opacification r emains, limited in assessment. Hiatal hernia is not seen on the earlier CT study. This could be a min imal left base infiltrate. Overall the left base is better aerated. There remains hazy opacification in the left midlung field partially obscured by the neurostimulator battery pack overlying the left c hest. No cardiomegaly or abnormal vascular engorgement. No measurable pleural effusion and no pneumot horax. No acute bony abnormality seen. No acute aortic findings suspected. IMPRESSION: Tubes and lines are unchanged. Assessment remains limited. Overall there is improved aeration of the lung brock but the patient has persistent medial left base opacification that could be remnant pneumonia.
[2018-06-23] MEDS: Brinzolamide/Brimonidine Tart (Simbrinza) 1%-0.2% Eye Drops EACH EYE SCH ×2 (09:14→22:00)
[2018-06-23] MEDS: THIAMINE HCL IV SCH (09:14)
[2018-06-23] MEDS: FOLIC ACID IV SCH (09:14)
[2018-06-23] MEDS: TOPIRAMATE 100 MG TAB PO SCH ×2 (09:14→22:02)
[2018-06-23] MEDS: levETIRAcetam 500 MG/5 ML OSYR PO SCH (09:15)
[2018-06-23] MEDS: PANTOPRAZOLE 40 MG INJ IVP SCH ×2 (09:18→22:02)
[2018-06-23] MEDS: VALPROIC ACID 250 MG/5 ML OSYR PO SCH ×2 (09:22→22:01)
--- NOTE | 2018-06-23 11:31 | P.PN ---
Subjective Date of Service: 06/23/18 Primary Care Provider: Eric Lozoya NP; Neurology-Dr. Lopez; Card-Dr. Ramírez Chief Complaint: Respiratory failure seizure There is singing recurrent seizures on phenobarbital no change hypernatremia corrected Review of Systems is unable to be obtained Physical Examination - Vital Signs Temperature: 99 F Blood Pressure: 129/98 Pulse: 113 Respirations: 22 Pulse Ox (%): 99 - Physical Exam General: Unresponsive Respiratory: Clear to auscultation bilaterally Cardiovascular: No edema, Normal S1 S2 - Studies Microbiology Data (last 24 hrs): 06/16/18 07:22 Blood - Blood Aerobic Blood Culture - Final No growth in 5 days. 06/16/18 07:22 Blood - Blood Anaerobic Blood Culture - Final Medications List Reviewed: Yes Assessment & Plan - Problems (Diagnosis) (1) Pneumonia Onset Date: 06/18/18 Current Visit: Yes Status: Acute Plan: No clinical evidence of pneumonia although white count is mildly elevated chest x-ray appears to be clear patient's oxygenation is satisfactory Qualifiers: Pneumonia type: due to unspecified organism (2) Hypernatremia Current Visit: Yes Status: Acute Plan: Hypernatremia resolved patient is hyperglycemic patient was anemic and received 1 unit of packed red blood cells (3) Seizure disorder Onset Date: 06/18/18 Current Visit: Yes Status: Acute Plan: Patient is still has recurrent seizures will discuss with Neurology regarding weaning off phenobarbital discussed with mother she has recurrent seizures the nose is very poor Physician Review Additional Text: Impression: Acute encephalopathy likely multifactorial likely with sepsis secondary to left lower lobe pneumonia with history of cerebral palsy/History of CVA with encephalomalacia/Patient nonverbal/Bruxism Recent diarrhea suspect C diff colitis Seizure disorder with elevated Tegretol level Hypokalemia Anemia likely of chronic disease Poor IV access Malnutrition Hypertension Plan: Acute encephalopathy likely multifactorial likely with sepsis secondary to left lower lobe pneumonia with history of cerebral palsy/History of CVA with encephalomalacia/Patient nonverbal/Bruxism: Will continue with IV fluids. Encephalopathy likely multifactorial related to sepsis-pneumonia. Continue with IV Levaquin. Patient also has a history of cerebral palsy, seizure disorder and previous CVA with noted encephalomalacia. CT head shows no acute stroke. Case discussed with Neurology. Will continue with IV Keppra. Patient will need to be restarted on Tegretol. Will check with pharmacy to find out equivalent dose of Tegretol IV. Patient currently taking 200 mg 5 times a day. Neurology plans to decrease Tegretol by 100 mg of total dose per day. Patient was not able to get Dobbhoff yesterday. Will need to continue to reassess swallowing. Patient at risk for aspiration. Will need to discuss with family about the possible need of PEG tube if this is required. May need to consider TPN. Advanced directives address in detail with family. Patient DNR. Blood and urine cultures pending. I will turn the service over to Dr. Franklin tomorrow. I will go over the plan of care with her. Recent diarrhea suspect C diff colitis: Patient with recent diarrhea and antibiotic use. Await C diff culture results if positive patient will require vancomycin orally. Seizure disorder with elevated Tegretol level: Tegretol level improved. Tegretol can be restarted but at 100 mg less of total dose as per neurology. Pharmacy to calculate equivalent dose of Tegretol IV. Patient continues with IV Keppra. Hypokalemia: Will replace electrolytes. Will monitor closely. Anemia likely of chronic disease: Will continue to monitor CBC. Patient may require transfusion if hemoglobin less than 7.0 Poor IV access: PICC line in place. Malnutrition: Will consult dietary to further evaluate. May need to start TPN as patient was not able to tolerate Dobbhoff placement. Will need discuss with family about the possible need of PEG tube in the near future if dysphagia is noted. Hypertension: Will provide medication as needed. Will monitor closely. Echo was technically difficult.
--- NOTE | 2018-06-23 13:36 | P.PN ---
Subjective Date of Service: 06/23/18 Primary Care Provider: Eric Lozoya NP; Neurology-Dr. Lopez; Card-Dr. Ramírez Chief Complaint: Respiratory failure seizure Patient seen and examined at bedside with RN. Chart reviewed. Case discussed with pulmonology and Neurology. Patient continues to be intubated. Seizures noted overnight. Patient currently continues to be on a phenobarbital drip along with propofol drip as well. Review of Systems 10-point ROS is otherwise unremarkable Physical Examination - Vital Signs Temperature: 99 F Blood Pressure: 111/65 Pulse: 115 Respirations: 23 Pulse Ox (%): 95 - Physical Exam General: Other (Intubated and sedated) HEENT: Atraumatic Neck: Supple Respiratory: Normal air movement, Crackles/rales, Expiratory wheezes, Inspiratory wheezes Cardiovascular: Regular rate/rhythm, Normal S1 S2 Gastrointestinal: Normal bowel sounds, No tenderness Musculoskeletal: No tenderness Integumentary: No rashes Neurological: Normal speech, Normal tone, Normal affect Lymphatics: No axilla or inguinal lymphadenopathy - Studies Medications List Reviewed: Yes Assessment And Plan - Plan Assessment/Plan: 1. Acute encephalopathy likely multifactorial with sepsis, cerebral palsy, CVA with encephalomalacia -At baseline patient is nonverbal -Head CT in the ER negative for any acute abnormality -MRI with no acute abnormality with chronic changes noted -neurology consulted appreciated recommendations at this time -Switched to PO keppra and Depakote -IV phenobarb will wean off -EEG consistent with active seizure -currently pending improvement. 2. Sepsis -most likely secondary to bilateral pneumonia. -leukocytosis noted to trending down today. -On vanc and zosyn -the sputum cultures pending at this time as well 3. Pneumonia -see 2. 4. Seizure disorder -see 1. 5. Anemia likely of chronic disease -Hgb is 7.7 today. will transfuse 6. Malnutrition -dietary consult -will need TPN if patient continues to be intubated for feeding 7. Hypertension 8. Acute respiratory distress: -patient currently intubated and sedated would try to wean off of ventilator once patient is off of the phenobarb per Dr. Cullen -pulmonology consulted appreciated recommendations at this time 9. Hypernatremia with Hypercholiremia -Improved today -2.2 to dehydration -decrease D5W at 150 cc/hr -Increase free water flushes Disposition: Currently awaiting clinical improvement at this time. Will follow up with neurology with further recommendations at this time on continuation of phenobarbital. Discharge Plan: Other Plan to discharge in: Greater than 2 days - Code Status/Comfort Care Code Status Assessed: Yes Critical Care: No
[2018-06-23] MEDS ORDERED: D5W IV SCH (15:30)
[2018-06-23] MEDS ORDERED: PHENOBARBITAL IV SCH (15:30)
[2018-06-23] MEDS: ENOXAPARIN 40 MG/0.4 ML SQ SCH (16:28)
[2018-06-23] MEDS: levETIRAcetam 500 MG/5 ML OSYR FT SCH (22:01)
[2018-06-23] MEDS: LATANOPROST 0.005% OPTH SCH (22:01)
--- NOTE | 2018-06-23 23:51 | PN ---
Subjective: Over the weekend, the patient continued to have seizures, although the frequency has dim inished. Reportedly in the prior 72 hours, she had about 8 seizures in 24 hours, then around 5 seizu res, and now about 3 seizures. She continues to be on propofol drip, although that is being weaned a long with phenobarbital drip at 100 in 24 hours and Keppra and Depakote. The patient's family who we re at the bedside mentioned that she on the regular bed on a regular basis since her stroke has had a bout 5-10 seizures daily. That is her baseline for a number of years. Objective: Vital Signs: Blood pressure 108/76, pulse of 121, respiratory rate 19, temperature 96, ox ygen saturation 98%. General: Ms. Acosta is intubated. Continues to have some posturing and head turning, likely consiste nt with some ongoing seizures although at this point, not having any of those episodes. No new findi ngs on her examination. Laboratory Studies: White blood cell count from the is 14.9 with neutrophils 81.1%. Hemoglobin and hematocrit 9.3 and 26.5. Chemistries do show glucose elevated at 351. Procalcitonin from [facility] today 0.22. The levels of Depakote, levetiracetam, and phenobarbital are pending. Assessment: Ms. Acosta is a 32-year-old patient with medical refractory localization-related complex partial seizures, who has had an infection and had an episode of status epilepticus. She does have a baseline of high frequency of seizures. She is on multiple antiepileptic medications. To attempt t o wean her off the ventilator, we will cut back on propofol and phenobarbital. We will adjust leveti racetam and valproic acid to help achieve baseline seizure level of control. Plan: 1.As indicated above, we will attempt to wean off propofol and phenobarb to get her off the ventilat or. 2.We will continue, may increase valproic acid to 1000 mg twice a day and Keppra to 1000 mg twice a day. 3.We will check blood level of carbamazepine and levetiracetam. 4.The patient once at baseline may be able to be discharged back to home with continued treatment fo r infection per primary team. NANCY/BETY Voice ID: [id number] Report ID: [id number]
[2018-06-24] MEDS: PROPOFOL 1,000 MG/100 ML VIAL IV PRN ×2 (02:30→09:51)
[2018-06-24] MEDS: VANCOMYCIN 1.5 GM in Dextrose 5%-Water 500 ML IV SCH (02:45)
[2018-06-24] MEDS: D5W IV SCH ×4 (03:22→21:41)
[2018-06-24] MEDS: PIPER TAZO IV SCH ×3 (03:22→21:41)
[2018-06-24] MEDS: D5W 1,000 ML IV SCH (06:34)
[2018-06-24] MEDS ORDERED: PHENOBARBITAL 130 MG/ML INJ IV SCH ×2 (08:00→15:30)
[2018-06-24] MEDS: VALPROIC ACID 250 MG/5 ML OSYR PO SCH ×2 (08:17→21:42)
[2018-06-24] MEDS: PANTOPRAZOLE 40 MG INJ IVP SCH (08:18)
[2018-06-24] MEDS: levETIRAcetam 500 MG/5 ML OSYR FT SCH ×2 (08:18→21:42)
[2018-06-24] MEDS: Brinzolamide/Brimonidine Tart (Simbrinza) 1%-0.2% Eye Drops EACH EYE SCH ×2 (08:18→21:41)
[2018-06-24] MEDS: PROMOD 30 ML DOSE PO SCH (08:22)
[2018-06-24] MEDS: THIAMINE HCL IV SCH (09:50)
[2018-06-24] MEDS: FOLIC ACID IV SCH (09:50)
[2018-06-24] MEDS: TOPIRAMATE 100 MG TAB PO SCH ×2 (09:50→21:42)
--- NOTE | 2018-06-24 12:15 | P.PN ---
Subjective Date of Service: 06/24/18 Primary Care Provider: Eric Lozoya NP; Neurology-Dr. Lopez; Card-Dr. Ramírez Chief Complaint: Respiratory failure seizure Patient slowly weaned off phenobarbital still having recurrent seizures according to the neurologist the goal is for her to have about 5-10 seizures a day hypernatremia is now corrected white count is still mildly elevated cultures are all negative Review of Systems is unable to be obtained Physical Examination - Vital Signs Temperature: 98.9 F Blood Pressure: 130/77 Pulse: 112 Respirations: 21 Pulse Ox (%): 97 - Physical Exam General: Unresponsive Respiratory: Clear to auscultation bilaterally Cardiovascular: No edema, Normal S1 S2 - Studies Medications List Reviewed: Yes Assessment & Plan - Problems (Diagnosis) (1) Pneumonia Onset Date: 06/18/18 Current Visit: Yes Status: Acute Plan: No clinical evidence of pneumonia so far Dc vancomycin pro calcitonin level is declined significantly cultures are so far negative 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 SIMV rate of 10 and pressure support of 15, peep of 5 Qualifiers: Pneumonia type: due to unspecified organism Laterality: left (2) Hypernatremia Current Visit: Yes Status: Resolved Plan: Hypernatremia resolved Dc D5 water need to control of blood sugars with long- acting insulin (3) Seizure disorder Onset Date: 06/18/18 Current Visit: Yes Status: Acute Plan: Recurrent seizures phenobarbital is been and slowly weaned down Physician Review Additional Text: Impression: Acute encephalopathy likely multifactorial likely with sepsis secondary to left lower lobe pneumonia with history of cerebral palsy/History of CVA with encephalomalacia/Patient nonverbal/Bruxism Recent diarrhea suspect C diff colitis Seizure disorder with elevated Tegretol level Hypokalemia Anemia likely of chronic disease Poor IV access Malnutrition Hypertension Plan: Acute encephalopathy likely multifactorial likely with sepsis secondary to left lower lobe pneumonia with history of cerebral palsy/History of CVA with encephalomalacia/Patient nonverbal/Bruxism: Will continue with IV fluids. Encephalopathy likely multifactorial related to sepsis-pneumonia. Continue with IV Levaquin. Patient also has a history of cerebral palsy, seizure disorder and previous CVA with noted encephalomalacia. CT head shows no acute stroke. Case discussed with Neurology. Will continue with IV Keppra. Patient will need to be restarted on Tegretol. Will check with pharmacy to find out equivalent dose of Tegretol IV. Patient currently taking 200 mg 5 times a day. Neurology plans to decrease Tegretol by 100 mg of total dose per day. Patient was not able to get Dobbhoff yesterday. Will need to continue to reassess swallowing. Patient at risk for aspiration. Will need to discuss with family about the possible need of PEG tube if this is required. May need to consider TPN. Advanced directives address in detail with family. Patient DNR. Blood and urine cultures pending. I will turn the service over to Dr. Franklin tomorrow. I will go over the plan of care with her. Recent diarrhea suspect C diff colitis: Patient with recent diarrhea and antibiotic use. Await C diff culture results if positive patient will require vancomycin orally. Seizure disorder with elevated Tegretol level: Tegretol level improved. Tegretol can be restarted but at 100 mg less of total dose as per neurology. Pharmacy to calculate equivalent dose of Tegretol IV. Patient continues with IV Keppra. Hypokalemia: Will replace electrolytes. Will monitor closely. Anemia likely of chronic disease: Will continue to monitor CBC. Patient may require transfusion if hemoglobin less than 7.0 Poor IV access: PICC line in place. Malnutrition: Will consult dietary to further evaluate. May need to start TPN as patient was not able to tolerate Dobbhoff placement. Will need discuss with family about the possible need of PEG tube in the near future if dysphagia is noted. Hypertension: Will provide medication as needed. Will monitor closely. Echo was technically difficult.
[2018-06-24] MEDS: INSULIN -REGULAR HUMAN 50 UNIT/0.5 ML ML SQ SCH ×2 (12:40→17:06)
[2018-06-24] MEDS: LORazepam 2 MG/ML VIAL IV PRN (14:02)
[2018-06-24] MEDS ORDERED: D5W IV SCH (15:30)
[2018-06-24] MEDS ORDERED: PHENOBARBITAL IV SCH (15:30)
--- NOTE | 2018-06-24 16:16 | PN ---
Date of Progress Note: 06/24/2018 Subjective: The patient is seen and examined. Chart reviewed and case discussed with RN. The patie nt continues to be on the ventilator for airway protection. The patient is still on drip propofol an d phenobarbital drip, having multiple seizures daily, which is around her baseline, however, frequent ly increase. No family at the bedside. Review of Systems: Limited due to patient's medical condition. Physical Examination: Vital Signs: Temperature 98.9, heart rate 118, blood pressure 114/83, respirations 22, O2 96% via ET tube. General: Intubated, sedated. The patient is not responsive, was having active seizure during my exa mination, lasted a few seconds. CV: S1, S2. Regular rate and rhythm. Peripheral pulses present. Respiratory: Mechanical breath sounds. No wheezing or stridor. Gastrointestinal: Abdomen is soft, nondistended. Positive bowel sounds. No rigidity. Extremities: No clubbing, cyanosis, or edema. Neuro: The patient does not respond to name or sternal rub. The patient is currently intubated and sedated. Laboratory Data: Glucose 323. WBC is pending. Vanc level 16. C diff as negative. Blood culture, no growth final. Sputum culture, normal respiratory courtney. Assessment And Plan: A 32-year-old female with: 1.Acute metabolic encephalopathy, likely secondary to sepsis, cerebral palsy, cerebrovascular accide nt with encephalomalacia. The patient is nonverbal at baseline. Imaging including head CT and MRI h as not show any acute changes. Appreciate Neurology input. The patient is on Keppra and Depakote. Still on IV phenobarbital, which is being weaned off. EEG did show active seizures. Still difficult to wean off phenobarbital and propofol due to frequency of seizures. 2.Sepsis secondary to bilateral pneumonia. We will check CBC. On broad-spectrum IV antibiotics. C ultures negative to date. 3.Bilateral pneumonia, on antibiotics. Cultures negative. 4.Acute respiratory distress. The patient electively intubated due to sedation with propofol and ph enobarbital. 5.Active seizure disorder. The patient has multiple seizures at baseline, however, frequency had in crease which is why the patient was admitted to the hospital. Wean off IV phenobarbital and propofol as tolerated. Appreciate Dr. Cullen's input. Continue Depakote and Keppra. 6.Anemia of chronic disease. Monitor H and H, transfuse as needed. 7.Malnutrition. The patient is on feeding tube. 8.Essential hypertension, stable. 9.Hypernatremia with hyperchloremia likely secondary to dehydration. Water flushes have been increa sed. We will monitor electrolytes. Plan: Overall poor prognosis. We will attempt to wean off as tolerated. The patient is day 6 on th e ventilator. We need to consider either extubation or tracheostomy by tomorrow as it will be day 7. We will discuss with Pulmonology. /BETY Voice ID: [id number] Report ID: [id number]
[2018-06-24] MEDS: ENOXAPARIN 40 MG/0.4 ML SQ SCH (16:58)
[2018-06-24] MEDS: LATANOPROST 0.005% OPTH SCH (21:42)
[2018-06-25] MEDS: PROPOFOL 1,000 MG/100 ML VIAL IV PRN (00:15)
[2018-06-25] MEDS: INSULIN -REGULAR HUMAN 50 UNIT/0.5 ML ML SQ SCH ×4 (01:10→16:57)
[2018-06-25] MEDS: PIPER TAZO IV SCH ×3 (04:50→20:07)
[2018-06-25] MEDS: D5W IV SCH ×5 (04:50→20:07)
[2018-06-25 06:39] LABS: Absolute Monocytes 1.8 K/uL (0.1-1.3); Absolute Neutrophil 11.2 K/uL (1.8-8.0); Basophils % 0.2 % (0-1.3); Eosinophils % 1.3 % (0-4.4); Hematocrit 33.6 % (36.0-45.0); Lymphocytes % 13.3 % (15.3-44.8); MCH 25.4 pg (27.0-35.0); MCV 77.3 fL (80-100); MPV 8.4 fL (7.6-11.3); RBC Red Blood Cell Count 4.34 M/uL (3.86-4.86)
[2018-06-25 06:53] LABS: ALT/SGPT 30 U/L (12-78); AST/SGOT 36 U/L (15-37); Albumin 2.2 g/dL (3.4-5.0); Alkaline Phosphatase 63 U/L (45-117); BUN Blood Urea Nitrogen 6 mg/dL (7-18); Bicarbonate 21 mmol/L (21-32); Bilirubin Total 0.1 mg/dL (0.2-1.0); Glucose Level 164 mg/dL (74-106); Potassium 3.4 mmol/L (3.5-5.1); Protein, Total 8.3 g/dL (6.4-8.2); Sodium Level 148 mmol/L (136-145)
[2018-06-25 07:31] LABS: Blood Morphology Comment NOT SEEN (NOT SEEN); Macrocytosis SLIGHT; Platelet Estimate INCR; Platelets, Giant NOTED
[2018-06-25 07:32] LABS: Hypochromasia 1+; Polychromasia SLIGHT
[2018-06-25] MEDS ORDERED: POTASSIUM 25 MEQ EFFERV TAB PO ONE (08:22)
--- NOTE | 2018-06-25 08:57 | P.PN ---
Subjective Date of Service: 06/25/18 Primary Care Provider: Eric Lozoya NP; Neurology-Dr. Lopez; Card-Dr. Ramírez Chief Complaint: Respiratory failure seizure Patient is still having recurrent numerous seizures wean down from phenobarbital still on propofol drip patient did not tolerate that changing to SIMV yesterday Review of Systems is unable to be obtained Physical Examination - Vital Signs Temperature: 100.1 F Blood Pressure: 124/78 Pulse: 116 Respirations: 23 Pulse Ox (%): 99 - Physical Exam General: Unresponsive Respiratory: Clear to auscultation bilaterally Cardiovascular: No edema, Normal S1 S2 - Studies Medications List Reviewed: Yes Assessment & Plan - Problems (Diagnosis) (1) Pneumonia Onset Date: 06/18/18 Current Visit: Yes Status: Acute Plan: Possible pneumonia continue with Zosyn Qualifiers: Pneumonia type: due to unspecified organism Laterality: left (2) Hypernatremia Current Visit: Yes Status: Resolved Plan: Sodium is 148 continue with NG fluids (3) Seizure disorder Onset Date: 06/18/18 Current Visit: Yes Status: Acute Plan: Recurrent seizures phenobarbital is been and slowly weaned down patient is only on 24% oxygen (4) Status epilepticus Current Visit: Yes Status: Acute Plan: Patient has status epilepticus the current she recurrent seizures despite on phenobarbital and propofol prognosis very poor patient is currently on a ventilator change lead to SIMV will wean and extubate once patient is off propofol and phenobarbital patient is a mild microcytic anemia firmly iron- deficient of order some iron studies (5) Respiratory failure Current Visit: Yes Status: Acute Plan: Patient is on a vent animal oxygen requirement change to SIMV pressure support continue with PEEP Qualifiers: Chronicity: acute Physician Review Additional Text: Impression: Acute encephalopathy likely multifactorial likely with sepsis secondary to left lower lobe pneumonia with history of cerebral palsy/History of CVA with encephalomalacia/Patient nonverbal/Bruxism Recent diarrhea suspect C diff colitis Seizure disorder with elevated Tegretol level Hypokalemia Anemia likely of chronic disease Poor IV access Malnutrition Hypertension Plan: Acute encephalopathy likely multifactorial likely with sepsis secondary to left lower lobe pneumonia with history of cerebral palsy/History of CVA with encephalomalacia/Patient nonverbal/Bruxism: Will continue with IV fluids. Encephalopathy likely multifactorial related to sepsis-pneumonia. Continue with IV Levaquin. Patient also has a history of cerebral palsy, seizure disorder and previous CVA with noted encephalomalacia. CT head shows no acute stroke. Case discussed with Neurology. Will continue with IV Keppra. Patient will need to be restarted on Tegretol. Will check with pharmacy to find out equivalent dose of Tegretol IV. Patient currently taking 200 mg 5 times a day. Neurology plans to decrease Tegretol by 100 mg of total dose per day. Patient was not able to get Dobbhoff yesterday. Will need to continue to reassess swallowing. Patient at risk for aspiration. Will need to discuss with family about the possible need of PEG tube if this is required. May need to consider TPN. Advanced directives address in detail with family. Patient DNR. Blood and urine cultures pending. I will turn the service over to Dr. Franklin tomorrow. I will go over the plan of care with her. Recent diarrhea suspect C diff colitis: Patient with recent diarrhea and antibiotic use. Await C diff culture results if positive patient will require vancomycin orally. Seizure disorder with elevated Tegretol level: Tegretol level improved. Tegretol can be restarted but at 100 mg less of total dose as per neurology. Pharmacy to calculate equivalent dose of Tegretol IV. Patient continues with IV Keppra. Hypokalemia: Will replace electrolytes. Will monitor closely. Anemia likely of chronic disease: Will continue to monitor CBC. Patient may require transfusion if hemoglobin less than 7.0 Poor IV access: PICC line in place. Malnutrition: Will consult dietary to further evaluate. May need to start TPN as patient was not able to tolerate Dobbhoff placement. Will need discuss with family about the possible need of PEG tube in the near future if dysphagia is noted. Hypertension: Will provide medication as needed. Will monitor closely. Echo was technically difficult.
[2018-06-25] MEDS: levETIRAcetam 500 MG/5 ML OSYR FT SCH ×2 (09:53→20:07)
[2018-06-25] MEDS: Brinzolamide/Brimonidine Tart (Simbrinza) 1%-0.2% Eye Drops EACH EYE SCH ×2 (09:53→20:07)
[2018-06-25] MEDS: VALPROIC ACID 250 MG/5 ML OSYR PO SCH ×2 (09:53→20:06)
[2018-06-25] MEDS: TOPIRAMATE 100 MG TAB PO SCH ×2 (09:54→20:07)
[2018-06-25] MEDS: THIAMINE HCL IV SCH (09:54)
[2018-06-25] MEDS: FOLIC ACID IV SCH (09:54)
[2018-06-25] MEDS: PROMOD 30 ML DOSE PO SCH (09:54)
[2018-06-25] MEDS: PHENOBARBITAL IV SCH (10:45)
[2018-06-25 11:35] LABS: Ferritin 116.8 ng/mL (8-388)
--- NOTE | 2018-06-25 16:46 | PN ---
Date of Progress Note: 06/25/2018 Subjective: The patient is seen and examined. Chart reviewed and case discussed with RN and Dr. Alexis. The patient continues to be on ventilator and not being able to be weaned easily. The patient is still on phenobarbital and propofol drip, being weaned off slowly. Still having multiple seizures, but trending back to her baseline level of seizure activity. Review of Systems: Unable to be obtained due to patient's medical condition. Medications: List reviewed. Physical Examination: Vital Signs: Temperature 100.1, heart rate 116, blood pressure 124/78, respirations 22, O2 99% on mechanical ventilation via ET tube. General: Intubated, sedated. Nonresponsive. CV: S1, S2. Sinus tachycardia. No murmurs. Peripheral pulses present. Respiratory: Mechanical breath sounds. No wheezing. The patient is tachypneic. Gastrointestinal: Abdomen is soft, nondistended. Positive bowel sounds. Extremities: No clubbing, cyanosis, or edema. Neuro: The patient has lower extremity contractures and unable to move the right upper extremity. Nonverbal at baseline, currently intubated and sedated. Laboratory Data: potassium 3.4, chloride 116, CO2 21, BUN 6, creatinine 0.7, glucose is 164, calcium 8.5, iron 31, TIBC 321, ferritin 116, albumin 2.2. WBC 15.4, H and H are 11 and 33.6, platelets 452, neutrophils 73%. Blood cultures, no growth to date final. Assessment And Plan: A 32-year-old female with: 1. Acute metabolic encephalopathy secondary to sepsis, cerebrovascular accident with encephalomalacia, seizures. no acute changes on imaging. The patient continues to be on Keppra and Depakote, and being weaned off the phenobarbital. 2. Sepsis secondary to bilateral pneumonia. WBC still elevated. Continue IV antibiotics. Cultures negative to date. Appreciate Dr. Alexis's input. 3. Acute respiratory distress, intubated electively due to sedation on some propofol and phenobarbital. We will try to wean off as tolerated. 4. Active seizure disorder. The patient frequency has decreased, getting back to baseline. However, still on IV phenobarbital, being weaned off. We will continue Depakote and Keppra. 5. Anemia of chronic disease. We will continue to monitor H and H and transfuse as needed. Iron panel showed some decreased iron levels. 6. Severe protein-calorie malnutrition. Albumin is 2.2. We will continue tube feeds. 7. Essential hypertension, stable. 8. Hyponatremia, improving likely secondary to dehydration. Continue water flushes. Plan: Wean off the phenobarbital as tolerated and continue weaning trials for ventilation. Overall, poor prognosis. SA/MODL Voice ID: [id number] Report ID: [id number] [facility] CENTERJose J
[2018-06-25] MEDS: ENOXAPARIN 40 MG/0.4 ML SQ SCH (16:56)
[2018-06-25] MEDS: LORazepam 2 MG/ML VIAL IV PRN (19:59)
[2018-06-25] MEDS: LATANOPROST 0.005% OPTH SCH (20:07)
[2018-06-26] MEDS: INSULIN -REGULAR HUMAN 50 UNIT/0.5 ML ML SQ SCH ×4 (00:32→19:05)
[2018-06-26] MEDS: PROPOFOL 1,000 MG/100 ML VIAL IV PRN ×2 (04:26→17:17)
[2018-06-26] MEDS: D5W IV SCH ×5 (04:26→20:33)
[2018-06-26] MEDS: PIPER TAZO IV SCH ×3 (04:26→20:33)
[2018-06-26] MEDS: JEVITY 1.5 CAL LIQUID 1,000 ML BOT FT PRN (05:47)
[2018-06-26 06:02] LABS: Absolute Lymphocytes (CBC) 2.5 K/uL (0.7-4.9); Absolute Monocytes 2.2 K/uL (0.1-1.3); Basophils % 0.5 % (0-1.3); Eosinophils % 1.6 % (0-4.4); Hematocrit 28.4 % (36.0-45.0); Lymphocytes % 15.4 % (15.3-44.8); MCH 25.4 pg (27.0-35.0); MCV 77.3 fL (80-100); MPV 8.8 fL (7.6-11.3); Monocytes % 13.7 % (3.3-12.3); RBC Red Blood Cell Count 3.68 M/uL (3.86-4.86)
[2018-06-26 06:09] LABS: ALT/SGPT 23 U/L (12-78); AST/SGOT 24 U/L (15-37); Albumin 1.9 g/dL (3.4-5.0); Alkaline Phosphatase 53 U/L (45-117); BUN Blood Urea Nitrogen 6 mg/dL (7-18); Bicarbonate 24 mmol/L (21-32); Bilirubin Total 0.1 mg/dL (0.2-1.0); Glucose Level 159 mg/dL (74-106); Potassium 3.3 mmol/L (3.5-5.1); Protein, Total 7.6 g/dL (6.4-8.2); Sodium Level 143 mmol/L (136-145)
[2018-06-26 07:21] LABS: Blood Morphology Comment NOTED (NOT SEEN); Hypochromasia 2+; Platelet Estimate INCR; Platelets, Giant NOTED
[2018-06-26] MEDS: PHENOBARBITAL IV SCH (07:29)
[2018-06-26] MEDS: Brinzolamide/Brimonidine Tart (Simbrinza) 1%-0.2% Eye Drops EACH EYE SCH ×2 (09:21→20:35)
[2018-06-26] MEDS: VALPROIC ACID 250 MG/5 ML OSYR PO SCH ×2 (09:21→20:34)
[2018-06-26] MEDS: levETIRAcetam 500 MG/5 ML OSYR FT SCH ×2 (09:22→20:33)
[2018-06-26] MEDS: TOPIRAMATE 100 MG TAB PO SCH ×2 (09:22→20:34)
[2018-06-26] MEDS: FOLIC ACID IV SCH (09:23)
[2018-06-26] MEDS: THIAMINE HCL IV SCH (09:23)
[2018-06-26] MEDS: PROMOD 30 ML DOSE PO SCH (09:24)
[2018-06-26] MEDS: LORazepam 2 MG/ML VIAL IV PRN ×3 (09:42→22:38)
[2018-06-26] MEDS ORDERED: PHENOBARBITAL IV SCH (10:30)
[2018-06-26] MEDS ORDERED: D5W IV SCH (10:30)
[2018-06-26] MEDS ORDERED: PHENOBARBITAL 130 MG/ML INJ IV SCH (10:30)
--- NOTE | 2018-06-26 11:02 | RAD REPORT ---
EXAM DESCRIPTION: RAD - Chest Single View - 06/26/2018 10:31 am CLINICAL HISTORY: Pneumonia COMPARISON: June 23 TECHNIQUE: AP portable chest image was obtained 1013 hours . FINDINGS: Lung volumes are very low. Endotracheal tube and NG tube remain in place. Right-sided PICC line remains in place. Neurostimulator battery pack overlies the lower left lung field. No focal abnormality of the volume reduced right hemithorax. There is a hazy opacification of the low er left lung field that matches prior imaging. This is suspected to be remnant infiltrate. Small left pleural effusion may well be present. Overall heart size is normal. Vasculature within normal limits for exam limitations. No pneumothorax. No acute bony abnormality seen. No acute aortic findings susp ected. IMPRESSION: Very shallow inspiration film showing left lower lung field parenchymal opacification si milar to prior imaging. Small left pleural effusion suspected as well. Tubes and lines are unchanged.
--- NOTE | 2018-06-26 12:18 | PN ---
Date of Progress Note: 06/26/2018 Subjective: The patient seen and examined. Chart reviewed and case discussed with RN and Dr. Marni bergman. The patient continues to have seizures, she had approximately 10 seizures overnight shift. Cont inues to be weaned off phenobarbital and getting closer to being extubated and continue weaning trial . Review of Systems: Unable to be obtained due to the patient's medical condition. Medications: List reviewed. Physical Examination: Vital Signs: Temperature 98, heart rate 120, blood pressure 143/94, respirations 26, O2 97% on mecha nical ventilation via ET tube. General: Nonresponsive. No active seizures. Intubated, sedated. CV: S1 and S2. No murmurs. Sinus tachycardia. Peripheral pulses present. Respiratory: Mechanical breath sounds. Gastrointestinal: Abdomen is soft, nondistended. Positive bowel sounds. No rigidity. Extremities: No clubbing, cyanosis. The patient does have pedal edema. Neuro: Lower extremity contractures, intubated and sedated, nonresponsive. Does move extremities. Laboratory Data: Sodium 143, potassium 3.3, chloride 110, CO2 24, BUN 6, creatinine 0.6, glucose 159 , calcium 8.2, albumin 1.9. WBC 16, H and H 9.3 and 28.4, platelets 454, neutrophils 58%. Blood cul tures, no growth final. Chest x-ray pending. Assessment And Plan: A 32-year-old female with: 1.Acute metabolic encephalopathy secondary to sepsis, history of cerebrovascular accident with encep halomalacia, seizures. No changes on brain imaging. Continue Keppra and Depakote through NG tube. Being weaned off phenobarbital and propofol. 2.Sepsis secondary to bilateral pneumonia. We will repeat chest x-ray today. Cultures were negativ e. WBC count trending up. 3.Acute respiratory distress. Intubated electively due to sedation on propofol and phenobarbital du e to seizures. We will continue to wean as tolerated. 4.Active seizures. The patient is being weaned off the IV phenobarbital, will be discontinued by santana samayoa. Currently on Depakote and Keppra as well. Continues to have seizures, but more close to bas destin. 5.Anemia of chronic disease. We will continue to monitor H and H, transfuse if below 7. Does have an element of iron deficiency as well. 6.Severe protein-calorie malnutrition. Albumin 1.8. Continue tube feeds. 7.Essential hypertension, stable. 8.Hyponatremia, corrected. 9.Hypokalemia. Replace and monitor. Plan: Continue to wean off phenobarbital. Extubated likely next 24-48 hours. Overall, poor prognos is. SA/MODL Voice ID: [id number] Report ID: [id number]
[2018-06-26] MEDS ORDERED: POTASSIUM 25 MEQ EFFERV TAB PO ONE (15:09)
[2018-06-26] MEDS: ENOXAPARIN 40 MG/0.4 ML SQ SCH (16:50)
[2018-06-26] MEDS: ACETAMINOPHEN 650MG/RECT SUPP PR PRN (17:00)
[2018-06-26] MEDS ORDERED: NA CHLORIDE 0.9% 250 ML IV ONE (18:44)
[2018-06-26] MEDS ORDERED: NA CHLORIDE 0.9% 500 ML IV ONE (19:56)
[2018-06-26] MEDS: LATANOPROST 0.005% OPTH SCH (20:35)
[2018-06-27] MEDS: INSULIN -REGULAR HUMAN 50 UNIT/0.5 ML ML SQ SCH ×5 (00:57→23:31)
[2018-06-27] MEDS: LORazepam 2 MG/ML VIAL IV PRN ×7 (02:03→22:17)
[2018-06-27] MEDS: D5W IV SCH ×4 (04:00→20:32)
[2018-06-27] MEDS: PIPER TAZO IV SCH ×3 (04:00→20:32)
[2018-06-27] MEDS: ACETAMINOPHEN 650MG/RECT SUPP PR PRN ×2 (04:53→14:21)
[2018-06-27 05:10] VITALS: BMI 27.6
[2018-06-27 06:08] LABS: Absolute Lymphocytes (CBC) 1.8 K/uL (0.7-4.9); Absolute Monocytes 2.4 K/uL (0.1-1.3); Absolute Neutrophil 15.1 K/uL (1.8-8.0); Basophils % 0.3 % (0-1.3); Eosinophils % 1.1 % (0-4.4); Hematocrit 28.7 % (36.0-45.0); Lymphocytes % 9.1 % (15.3-44.8); MCH 25.5 pg (27.0-35.0); MCV 77.8 fL (80-100); MPV 8.8 fL (7.6-11.3); Monocytes % 12.5 % (3.3-12.3); RBC Red Blood Cell Count 3.68 M/uL (3.86-4.86)
[2018-06-27 06:26] LABS: ALT/SGPT 21 U/L (12-78); AST/SGOT 15 U/L (15-37); Albumin 1.9 g/dL (3.4-5.0); Alkaline Phosphatase 51 U/L (45-117); BUN Blood Urea Nitrogen 6 mg/dL (7-18); Bicarbonate 21 mmol/L (21-32); Bilirubin Total 0.2 mg/dL (0.2-1.0); Glucose Level 200 mg/dL (74-106); Potassium 3.6 mmol/L (3.5-5.1); Protein, Total 7.7 g/dL (6.4-8.2); Sodium Level 145 mmol/L (136-145)
[2018-06-27] MEDS: JEVITY 1.5 CAL LIQUID 1,000 ML BOT FT PRN (07:07)
[2018-06-27 07:21] LABS: Blood Morphology Comment NOTED (NOT SEEN); Hypochromasia 1+; Platelet Estimate INCR; Polychromasia SLIGHT; Urine White Blood Cell Casts OK
[2018-06-27 07:22] LABS: Spherocyte 1+
[2018-06-27] MEDS ORDERED: KCL 20 MEQ/100 mL IVPB 20 MEQ/100 ML BAG IV SCH ×2 (08:00)
[2018-06-27] MEDS: VALPROIC ACID 250 MG/5 ML OSYR PO SCH ×2 (08:31→20:33)
[2018-06-27] MEDS: Brinzolamide/Brimonidine Tart (Simbrinza) 1%-0.2% Eye Drops EACH EYE SCH ×2 (08:31→20:33)
[2018-06-27] MEDS: TOPIRAMATE 100 MG TAB PO SCH ×2 (08:32→20:32)
[2018-06-27] MEDS: PROMOD 30 ML DOSE PO SCH (08:32)
[2018-06-27] MEDS: levETIRAcetam 500 MG/5 ML OSYR FT SCH ×2 (08:32→20:32)
[2018-06-27] MEDS: FOLIC ACID IV SCH (09:00)
[2018-06-27] MEDS ORDERED: VANCOMYCIN 1.5 GM in NA CHLORIDE 0.9% 500 ML IVPB ONE (09:00)
[2018-06-27] MEDS: THIAMINE HCL IV SCH (09:00)
[2018-06-27] MEDS ORDERED: VANCOMYCIN 1 GM in NA CHLORIDE 0.9% 500 ML IVPB ONE (10:00)
[2018-06-27] MEDS ORDERED: PHENOBARBITAL IV SCH (10:30)
[2018-06-27] MEDS ORDERED: PHENOBARBITAL 130 MG/ML INJ IV SCH (10:30)
[2018-06-27] MEDS ORDERED: D5W IV SCH (10:30)
--- NOTE | 2018-06-27 12:18 | P.PN ---
Subjective Date of Service: 06/27/18 Primary Care Provider: Eric Lozoya NP; Neurology-Dr. Lopez; Card-Dr. Ramírez Chief Complaint: Respiratory failure seizure Patient is still on a ventilator propofol weaned off declining dose of phenobarbital her running a slight temperature Review of Systems is unable to be obtained Physical Examination - Vital Signs Temperature: 101.0 F Blood Pressure: 102/81 Pulse: 119 Respirations: 21 Pulse Ox (%): 99 - Physical Exam General: Unresponsive Respiratory: Clear to auscultation bilaterally Cardiovascular: No edema, Normal S1 S2 - Studies Medications List Reviewed: Yes Assessment & Plan - Problems (Diagnosis) (1) Pneumonia Onset Date: 06/18/18 Current Visit: Yes Status: Acute Plan: Possible pneumonia patient is still running a fever vancomycin added blood cultures ordered sputum cultures reordered Qualifiers: Pneumonia type: due to unspecified organism Laterality: left (2) Seizure disorder Onset Date: 06/18/18 Current Visit: Yes Status: Acute Plan: Recurrent seizures phenobarbital is been and slowly weaned down patient is only on 24% oxygen (3) Status epilepticus Current Visit: Yes Status: Acute Plan: Patient still continues to have seizures phenobarbital weaned down (4) Respiratory failure Current Visit: Yes Status: Acute Plan: Currently patient is off the propofol will plan to wean and extubate tomorrow she did not tolerate SIMV Qualifiers: Chronicity: acute Physician Review Additional Text: Impression: Acute encephalopathy likely multifactorial likely with sepsis secondary to left lower lobe pneumonia with history of cerebral palsy/History of CVA with encephalomalacia/Patient nonverbal/Bruxism Recent diarrhea suspect C diff colitis Seizure disorder with elevated Tegretol level Hypokalemia Anemia likely of chronic disease Poor IV access Malnutrition Hypertension Plan: Acute encephalopathy likely multifactorial likely with sepsis secondary to left lower lobe pneumonia with history of cerebral palsy/History of CVA with encephalomalacia/Patient nonverbal/Bruxism: Will continue with IV fluids. Encephalopathy likely multifactorial related to sepsis-pneumonia. Continue with IV Levaquin. Patient also has a history of cerebral palsy, seizure disorder and previous CVA with noted encephalomalacia. CT head shows no acute stroke. Case discussed with Neurology. Will continue with IV Keppra. Patient will need to be restarted on Tegretol. Will check with pharmacy to find out equivalent dose of Tegretol IV. Patient currently taking 200 mg 5 times a day. Neurology plans to decrease Tegretol by 100 mg of total dose per day. Patient was not able to get Dobbhoff yesterday. Will need to continue to reassess swallowing. Patient at risk for aspiration. Will need to discuss with family about the possible need of PEG tube if this is required. May need to consider TPN. Advanced directives address in detail with family. Patient DNR. Blood and urine cultures pending. I will turn the service over to Dr. Franklin tomorrow. I will go over the plan of care with her. Recent diarrhea suspect C diff colitis: Patient with recent diarrhea and antibiotic use. Await C diff culture results if positive patient will require vancomycin orally. Seizure disorder with elevated Tegretol level: Tegretol level improved. Tegretol can be restarted but at 100 mg less of total dose as per neurology. Pharmacy to calculate equivalent dose of Tegretol IV. Patient continues with IV Keppra. Hypokalemia: Will replace electrolytes. Will monitor closely. Anemia likely of chronic disease: Will continue to monitor CBC. Patient may require transfusion if hemoglobin less than 7.0 Poor IV access: PICC line in place. Malnutrition: Will consult dietary to further evaluate. May need to start TPN as patient was not able to tolerate Dobbhoff placement. Will need discuss with family about the possible need of PEG tube in the near future if dysphagia is noted. Hypertension: Will provide medication as needed. Will monitor closely. Echo was technically difficult.
--- NOTE | 2018-06-27 15:16 | PN ---
Date of Progress Note: 06/27/2018 Subjective: The patient seen and examined. Chart reviewed and case discussed with RN and Dr. Marni bergman. The patient still having seizures and multiple episodes of night continues to be weaned off the phenobarbital. Does seem to be more responsive. Also having high fevers. Review of Systems: Negative except as above. Medications: List reviewed. Physical Examination: Vital Signs: T-max was 102.3 yesterday afternoon. Current temperature is 100.8, heart rate 129, blo od pressure 113/88, respirations 22, O2 98% on mechanical ventilation, 24% FiO2. General: Intubated, sedated, more alert. CV: S1, S2. Sinus tachycardia. No murmurs. Peripheral pulses present. Respiratory: Diminished breath sounds at the bases. No wheezing. The patient is tachypneic. Gastrointestinal: Abdomen is soft, nondistended. Positive bowel sounds. Extremities: No clubbing, cyanosis. Does have edema of the right foot worse than left foot. Neuro: Intubated, sedated, nonresponsive and do not follow any commands. Medications: List reviewed. Review of Systems: Unable to be obtained due to patient's medical condition. Laboratory Data: Sodium 145, potassium 3.6, chloride 114, CO2 21, BUN 6, creatinine 0.5, glucose 200 , lactic acid 1.9, calcium 8.3. Initial lactate was 2.6, yesterday evening went up to 3.2, now brooks lized to 1.9. Albumin 1.9. WBC 19.6, H and H 9.4 and 28.7, platelets 506, neutrophils 77%. Blood c ultures re-obtain pending. Assessment And Plan: A 32-year-old female with: 1.Acute metabolic encephalopathy secondary to sepsis, history of cerebrovascular accident, encephalo malacia, seizures does not seem to be around her baseline yet with more frequent seizures at this juan miguel e. Currently being weaned off phenobarbital and propofol. 2.Sepsis secondary to bilateral pneumonia. Repeat chest x-ray, personally reviewed, did not show mu ch change. Still have infiltrates. White count trending up. Vancomycin was added to Zosyn. Cultur es redone. 3.Acute respiratory distress. Intubated electively due to sedating affects of propofol and phenobar bital, being weaned or likely extubate in a.m. 4.Active seizures. Still on IV phenobarbital but at minimal dose, will be discontinued by tomorrow. We will continue on Depakote and Keppra. The patient continues to have seizures, which is her base line. 5.Anemia of chronic disease. Monitor H and H, currently stable. Transfuse as needed. 6.Severe protein-calorie malnutrition. Continue tube feeds. 7.Essential hypertension, stable. 8.Hypokalemia. Replace and monitor. Plan: Follow up on cultures. IV antibiotics have been adjusted. The patient's lactate was elevated , white count trending up. Does have pneumonia, however, may be developing ventilator associated pne umonia versus line infection. We will continue to monitor closely. Overall, very poor prognosis. T he patient does not have any quality of life. SA/MODL Voice ID: [id number] Report ID: [id number]
[2018-06-27] MEDS: ENOXAPARIN 40 MG/0.4 ML SQ SCH (17:37)
[2018-06-27] MEDS: LATANOPROST 0.005% OPTH SCH (20:32)
[2018-06-27] MEDS: VANCOMYCIN/NS 1 gm 1 GM/250 ML BAG IV SCH (20:32)
[2018-06-28] MEDS: PIPER TAZO IV SCH (03:02)
[2018-06-28] MEDS: D5W IV SCH (03:02)
[2018-06-28] MEDS: LORazepam 2 MG/ML VIAL IV PRN ×5 (05:28→23:06)
[2018-06-28] MEDS: INSULIN -REGULAR HUMAN 50 UNIT/0.5 ML ML SQ SCH ×3 (06:50→18:00)
[2018-06-28 07:17] LABS: Absolute Lymphocytes (CBC) 1.7 K/uL (0.7-4.9); Absolute Monocytes 2.6 K/uL (0.1-1.3); Absolute Neutrophil 19.9 K/uL (1.8-8.0); Basophils % 0.7 % (0-1.3); Eosinophils % 0.9 % (0-4.4); Hematocrit 29.3 % (36.0-45.0); Lymphocytes % 6.8 % (15.3-44.8); MCV 77.8 fL (80-100); MPV 9.5 fL (7.6-11.3); Monocytes % 10.5 % (3.3-12.3); RBC Red Blood Cell Count 3.76 M/uL (3.86-4.86)
[2018-06-28 07:39] LABS: ALT/SGPT 19 U/L (12-78); AST/SGOT 15 U/L (15-37); Albumin 1.9 g/dL (3.4-5.0); Alkaline Phosphatase 47 U/L (45-117); BUN Blood Urea Nitrogen 7 mg/dL (7-18); Bicarbonate 19 mmol/L (21-32); Bilirubin Total 0.2 mg/dL (0.2-1.0); Glucose Level 209 mg/dL (74-106); Potassium 3.6 mmol/L (3.5-5.1); Sodium Level 144 mmol/L (136-145)
[2018-06-28 07:48] LABS: Anisocytosis 1+; Blood Morphology Comment NOTED (NOT SEEN); Platelet Estimate INCR; Platelets, Giant PRESENT; Polychromasia 1+; Urine White Blood Cell Casts OK
[2018-06-28] MEDS: KCL 20 MEQ/100 mL IVPB 20 MEQ/100 ML BAG IV SCH ×2 (08:04→10:00)
[2018-06-28] MEDS: THIAMINE HCL 100 MG TABLET PO SCH (08:49)
[2018-06-28] MEDS: TOPIRAMATE 100 MG TAB PO SCH ×2 (08:50→21:44)
[2018-06-28] MEDS: VALPROIC ACID 250 MG/5 ML OSYR PO SCH ×2 (08:50→21:44)
[2018-06-28] MEDS: Brinzolamide/Brimonidine Tart (Simbrinza) 1%-0.2% Eye Drops EACH EYE SCH ×2 (08:50→21:45)
[2018-06-28] MEDS: METOPROLOL TARTRATE 5 MG/5 ML INJ IV PRN ×2 (08:51→15:15)
[2018-06-28] MEDS: levETIRAcetam 500 MG/5 ML OSYR FT SCH ×2 (08:51→21:45)
[2018-06-28] MEDS ORDERED: PIPER/TAZO/NS 4.5gm 4.5 GM/100 ML BAG IV SCH (09:00)
[2018-06-28] MEDS ORDERED: Meropenem 500 MG VIAL IV SCH (09:00)
[2018-06-28] MEDS ORDERED: ALTEPLASE 2 MG/VIAL IV ONE (09:00)
[2018-06-28] MEDS ORDERED: CEFTRIAXONE 2,000 MG in NA CHLORIDE 0.9% 100 ML IV SCH (10:00)
--- NOTE | 2018-06-28 10:26 | RAD REPORT ---
EX[facility] DESCRIPTION: [facility]28[facility] 10:21 am CLINICAL HISTORY: Right leg pain and swelling. COMPARISON: None. FINDINGS: Right common femoral, superficial femoral, popliteal and right posterior tibial veins are compressible and demonstrate augmentation. Doppler demonstrates good flow. IMPRESSION: No evidence of deep venous thrombosis involving the right lower extremity.
--- NOTE | 2018-06-28 10:30 | RAD REPORT ---
EXAM DESCRIPTION: [facility] Single View06/28/2018 9:46 am CLINICAL HISTORY: Shortness of breath COMPARISON: June 26, 2018 FINDINGS: Mild bibasilar opacities are suspected. . The heart is normal size. Right PICC line has its tip in the left brachiocephalic vein Endotracheal tube has its tip above the doris. Nasogastric tube is present within distal stomach Battery pack overlies the left chest
[2018-06-28] MEDS: PROMOD 30 ML DOSE PO SCH (10:49)
[2018-06-28] MEDS ORDERED: WATER FOR INJ,STERILE 10 ML ONE (10:50)
[2018-06-28 12:16] LABS: Urine Appearance CLEAR; Urine Bilirubin NEGATIVE (NEG); Urine Blood NEGATIVE (NEG); Urine Color YELLOW; Urine Glucose TRACE (NEG); Urine Protein TRACE (NEG); Urine Urobilinogen 0.2 mg/dL (0.2-1.0); Urine pH 7.5 (5.0-7.0)
[2018-06-28 12:32] LABS: Urine RBC NONE SEEN /HPF (NONE SEEN)
[2018-06-28 12:33] LABS: Urine Bacteria NONE SEEN /HPF (<20); Urine Culture Reflex Order NOT NEEDED
[2018-06-28] MEDS: CEFTRIAXONE/SWI 2gm 2 GM/20 ML SYR IV SCH ×2 (12:38→21:43)
[2018-06-28] MEDS: METRONIDAZOLE 500mg IVPB 500 MG/100 ML BAG IV SCH ×2 (12:39→18:08)
[2018-06-28] MEDS: VANCOMYCIN/NS 1 gm 1 GM/250 ML BAG IV SCH ×2 (12:40→21:43)
--- NOTE | 2018-06-28 14:19 | PN ---
Date of Progress Note: 06/28/2018 History: The patient is seen and examined. Chart reviewed and case discussed with RN and Dr. Marni bergman as well as Dr. Cullen. The patient seems to be deteriorating and is spiking high fevers, tachyp neic, tachycardic, having multiple seizures, still vent dependent. We will speak with family regardi ng poor prognosis. Review of Systems: Unable to obtain due to patient's medical condition. Medications: List reviewed. Physical Examination: Vital Signs: Temperature 98.5, T-max 101.5 yesterday evening. Pulse is 124, respirations 28, blood pressure 121/96, O2 99%. On ET to mechanical ventilation. FiO2 28%. General: Intubated, sedated, somewhat tremulous. CV: S1, S2. Sinus tachycardia. Peripheral pulses present. No murmurs. Respiratory: Diminished breath sounds, especially at the bases. No wheezing. The patient is tachyp neic, using accessory muscles present. Gastrointestinal: Abdomen is soft, nondistended. Positive bowel sounds. Extremities: No clubbing, cyanosis. Trace edema in the right lower extremity. Skin: Warm to touch in the right lower extremity compared to the left. Otherwise, no ulcers or rash es. Neuro: Intubated, sedated. Does not respond to name or sternal rub. Laboratory Data: WBC 24.6, H and H 9.4, 29.3, platelets 550, neutrophils 81%. Sodium 144, potassium 3.6, chloride 115, CO2 19, BUN 7, creatinine 0.5, glucose 209, lactate 3.6, calcium 8.5, magnesium 2 .4, albumin 1.5. Procalcitonin 0.15. Repeat blood cultures, no growth to date. Doppler venous stud y shows no evidence of DVT in the right lower extremity. Chest x-ray, personally reviewed, shows mil d bibasilar opacities, suspected. ET tube above doris. NG tube within distal stomach. Assessment: A 32-year-old female with: 1.Sepsis secondary to bilateral pneumonia, possible meningitis. WBC trending up. We will adjust IV antibiotics. We will add Rocephin 2 g IV q.12. vancomycin is already in place. Also add Flagyl fo r anaerobic coverage for pneumonia. Repeat cultures, negative to date. The lactate is elevated, pro calcitonin negative. 2.Acute metabolic encephalopathy secondary to sepsis, history of cerebrovascular accident with encep halomalacia and seizures, currently being weaned off phenobarbital and propofol. 3.Acute respiratory distress, intubated electively due to propofol barbital drip. Has not been tole rating weaning trials, likely unable to be extubated. 4.Active seizures, phenobarbital to come off today, still on Depakote and Keppra, but continues to h ave seizures, somewhat above her baseline. Neurology on board. 5.Anemia of chronic disease. We will continue to monitor. Hemoglobin and hematocrit, stable. Alejandre sfuse as needed. 6.Severe protein-calorie malnutrition. Albumin is 1.9. Will continue tube feeds. 7.Essential hypertension stable. Plan: 1.Overall poor prognosis. We will discuss with family regarding withdrawal of mechanical ventilatio n. The patient is a DNR. 2.Possible meningitis. Low yield from LP at this point since the patient has been on IV antibiotics . However, we will treat presumptively. /MODL Voice ID: [id number] Report ID: [id number]
[2018-06-28] MEDS ORDERED: FLUCONAZOLE 200mg IVPB 200 MG/100 ML BAG IV SCH (14:30)
--- NOTE | 2018-06-28 18:04 | RAD REPORT ---
EXAM DESCRIPTION: CT - Head Brain Wo Cont - 06/28/2018 5:38 pm CLINICAL HISTORY: Alteration of awareness/seizures COMPARISON: June 17, 2000 TECHNIQUE: Computed axial tomography of the head was obtained. IV contrast was not requested. All CT scans are performed using dose optimization technique as appropriate and may include automated exposure control or mA/KV adjustment according to patient size. FINDINGS: An intracranial bleed is not seen . The ventricles are normal in caliber. No extra-axial fluid collection is noted. Large low-density area within the right cerebrum and low-de nsity within the left occipital lobe is unchanged probably old infarcts IMPRESSION: No acute intracranial abnormality is seen. If patient's symptoms persist MRI of the bra in would be recommended.
[2018-06-28] MEDS: ENOXAPARIN 40 MG/0.4 ML SQ SCH (18:08)
[2018-06-28] MEDS: LATANOPROST 0.005% OPTH SCH (21:45)
[2018-06-29] MEDS: INSULIN -REGULAR HUMAN 50 UNIT/0.5 ML ML SQ SCH ×3 (00:04→12:00)
[2018-06-29] MEDS: METRONIDAZOLE 500mg IVPB 500 MG/100 ML BAG IV SCH ×2 (00:05→08:39)
[2018-06-29] MEDS: LORazepam 2 MG/ML VIAL IV PRN ×2 (04:42→09:48)
[2018-06-29 05:38] VITALS: O2SAT 97
[2018-06-29 07:07] LABS: ALT/SGPT 18 U/L (12-78); AST/SGOT 19 U/L (15-37); Albumin 1.9 g/dL (3.4-5.0); Alkaline Phosphatase 51 U/L (45-117); BUN Blood Urea Nitrogen 6 mg/dL (7-18); Bicarbonate 18 mmol/L (21-32); Bilirubin Total 0.1 mg/dL (0.2-1.0); Glucose Level 166 mg/dL (74-106); Potassium 3.8 mmol/L (3.5-5.1); Protein, Total 8.4 g/dL (6.4-8.2); Sodium Level 147 mmol/L (136-145)
[2018-06-29] MEDS: Brinzolamide/Brimonidine Tart (Simbrinza) 1%-0.2% Eye Drops EACH EYE SCH (08:39)
[2018-06-29] MEDS: CEFTRIAXONE/SWI 2gm 2 GM/20 ML SYR IV SCH (08:39)
[2018-06-29] MEDS: THIAMINE HCL 100 MG TABLET PO SCH (08:39)
[2018-06-29] MEDS: VALPROIC ACID 250 MG/5 ML OSYR PO SCH (08:39)
[2018-06-29] MEDS: TOPIRAMATE 100 MG TAB PO SCH (08:40)
[2018-06-29] MEDS: PROMOD 30 ML DOSE PO SCH (08:40)
[2018-06-29] MEDS: VANCOMYCIN/NS 1 gm 1 GM/250 ML BAG IV SCH (08:40)
[2018-06-29] MEDS: levETIRAcetam 500 MG/5 ML OSYR FT SCH (08:40)
[2018-06-29] MEDS: METOPROLOL TARTRATE 5 MG/5 ML INJ IV PRN ×2 (08:41→14:45)
[2018-06-29 09:13] LABS: Absolute Lymphocytes (CBC) 2.3 K/uL (0.7-4.9); Basophils % 0.3 % (0-1.3); Eosinophils % 0.7 % (0-4.4); Hematocrit 28.2 % (36.0-45.0); MCH 25.3 pg (27.0-35.0); MPV 9.5 fL (7.6-11.3); Monocytes % 11.7 % (3.3-12.3); RBC Red Blood Cell Count 3.57 M/uL (3.86-4.86)
[2018-06-29 10:28] LABS: Anisocytosis 1+; Blood Morphology Comment NOTED (NOT SEEN); Platelet Estimate INCR; Toxic Granulation 2+; Urine White Blood Cell Casts OK
[2018-06-29] MEDS ORDERED: GLUCAGON 1 MG/VIAL IM PRN (10:56)
[2018-06-29] MEDS ORDERED: D50W 25 GM/50 ML SYRINGE IV PRN (10:56)
--- NOTE | 2018-06-29 10:58 | P.PN ---
Subjective Date of Service: 06/29/18 Primary Care Provider: Eric Lozoya NP; Neurology-Dr. Lopez; Card-Dr. Ramírez Chief Complaint: Respiratory failure seizure Patient has recurrent seizures tolerated SIMV for 5 hr still running a fever white count elevated cultures all negative is currently on Rocephin Flagyl and vancomycin Review of Systems is unable to be obtained Physical Examination - Vital Signs Temperature: 101 F Blood Pressure: 119/94 Pulse: 142 Respirations: 24 Pulse Ox (%): 99 - Physical Exam General: Comatose Respiratory: Clear to auscultation bilaterally Cardiovascular: No edema Gastrointestinal: Normal bowel sounds - Studies Medications List Reviewed: Yes Assessment & Plan - Problems (Diagnosis) (1) Pneumonia Onset Date: 06/18/18 Current Visit: Yes Status: Acute Plan: Antibiotics change to Rocephin and Flagyl Qualifiers: Pneumonia type: due to unspecified organism Laterality: left (2) Seizure disorder Onset Date: 06/18/18 Current Visit: Yes Status: Acute Plan: Still has recurrent seizures is a weaned off propofol and phenobarbital patient is mildly hypernatremic despite receiving PEG tube fluids continue to monitor (3) Respiratory failure Current Visit: Yes Status: Acute Plan: Patient did tolerate SIMV for 4 hr will resume today and tomorrow possible extubation Qualifiers: Chronicity: acute (4) Fever of unknown origin Current Visit: Yes Status: Acute Plan: Patient continues to have a fever and elevated white count all cultures are negative consider repeat abdominal pelvic CT scan possible lumbar puncture Physician Review Additional Text: Impression: Acute encephalopathy likely multifactorial likely with sepsis secondary to left lower lobe pneumonia with history of cerebral palsy/History of CVA with encephalomalacia/Patient nonverbal/Bruxism Recent diarrhea suspect C diff colitis Seizure disorder with elevated Tegretol level Hypokalemia Anemia likely of chronic disease Poor IV access Malnutrition Hypertension Plan: Acute encephalopathy likely multifactorial likely with sepsis secondary to left lower lobe pneumonia with history of cerebral palsy/History of CVA with encephalomalacia/Patient nonverbal/Bruxism: Will continue with IV fluids. Encephalopathy likely multifactorial related to sepsis-pneumonia. Continue with IV Levaquin. Patient also has a history of cerebral palsy, seizure disorder and previous CVA with noted encephalomalacia. CT head shows no acute stroke. Case discussed with Neurology. Will continue with IV Keppra. Patient will need to be restarted on Tegretol. Will check with pharmacy to find out equivalent dose of Tegretol IV. Patient currently taking 200 mg 5 times a day. Neurology plans to decrease Tegretol by 100 mg of total dose per day. Patient was not able to get Dobbhoff yesterday. Will need to continue to reassess swallowing. Patient at risk for aspiration. Will need to discuss with family about the possible need of PEG tube if this is required. May need to consider TPN. Advanced directives address in detail with family. Patient DNR. Blood and urine cultures pending. I will turn the service over to Dr. Franklin tomorrow. I will go over the plan of care with her. Recent diarrhea suspect C diff colitis: Patient with recent diarrhea and antibiotic use. Await C diff culture results if positive patient will require vancomycin orally. Seizure disorder with elevated Tegretol level: Tegretol level improved. Tegretol can be restarted but at 100 mg less of total dose as per neurology. Pharmacy to calculate equivalent dose of Tegretol IV. Patient continues with IV Keppra. Hypokalemia: Will replace electrolytes. Will monitor closely. Anemia likely of chronic disease: Will continue to monitor CBC. Patient may require transfusion if hemoglobin less than 7.0 Poor IV access: PICC line in place. Malnutrition: Will consult dietary to further evaluate. May need to start TPN as patient was not able to tolerate Dobbhoff placement. Will need discuss with family about the possible need of PEG tube in the near future if dysphagia is noted. Hypertension: Will provide medication as needed. Will monitor closely. Echo was technically difficult.
[2018-06-29] MEDS ORDERED: ALTEPLASE 2 MG/VIAL IV SCH (12:00)
[2018-06-29] MEDS ORDERED: WATER FOR INJ,STERILE 10 ML ONE (12:10)
--- NOTE | 2018-06-29 13:13 | RAD REPORT ---
EXAM DESCRIPTION: CT - Chest Abdomen Pelvis W Cont - 06/29/2018 11:33 am CLINICAL HISTORY: Fever of unknown origin, elevated white count COMPARISON: None. TECHNIQUE: Following dynamic enhancement using 100 milliliters nonionic IV contrast, axial imaging o f the chest, abdomen and pelvis was performed. Biphasic technique was utilized through the abdomen. No oral contrast administered. All CT scans are performed using dose optimization technique as appropriate and may include automated exposure control or mA/KV adjustment according to patient size. FINDINGS: A 4 x 2 centimeter area of parenchymal opacification is present in the left midlung field. There is questionable central cavitary portion or dilated bronchus. Mild adjacent stranding changes are present. Lung brock are otherwise clear of significant process. There is bilateral lung base ate lectasis and a trace amount of left pleural fluid. No right pleural effusion. No pleural based mass. No significant aortic or pulmonary arterial tree f inding. Mediastinal and hilar regions show no mass or abnormal lymphadenopathy. No chest wall mass or axillary lymphadenopathy. Minimal pericardial effusion. The liver, spleen and pancreas show no suspicious findings. Gallbladder and biliary tree are unremark able. Gallstones can be occult on CT imaging. Symmetric renal function is seen with no mass or hydro nephrosis. No pyelonephritis or acute renal parenchymal process. No adrenal gland abnormality. A few prominent fluid-filled small bowel loops are present. Moderate stool volume in the colon. No di verticulitis. Urinary bladder is contracted around a Meyer catheter. Uterus and ovaries show no suspi cious findings. No acute or destructive bone process. Patient has a severe left convex scoliotic deformity. No bone d estructive process identified. No CT findings to suspect osteomyelitis or discitis. Endotracheal tube tip terminates at the doris. NG tube is in good position. No significant vascular findings. IMPRESSION: Tip of the ET tube is at the doris. NG tube is in good position. Left mid lung field opacification suspicious for infectious or aspiration pneumonia. This may be a so urce for the patient's fever. Minimal pericardial effusion. No acute process seen. Bladder assessment is limited due to contracted state.Small bowel enteritis is possible.
[2018-06-29] MEDS ORDERED: KCL 20 MEQ/100 mL IVPB 20 MEQ/100 ML BAG IV SCH (14:00)
[2018-06-29 15:19] VITALS: BP 131/67; TEMP 100.6
--- NOTE | 2018-06-29 18:27 | PN ---
Date of Progress Note: 06/29/2018 Subjective: The patient was seen and examined. Chart reviewed and case discussed with RN and Dr. Justyn quinteros. The patient was referred for transfer to [facility], was accepted, pending an administrative screening. Transfer has been initiated to [facility] per family request, as well as [facility]. [facility] and [facility] choose due to continuity of care with patient's neurologis t, Dr. Lopez, as part of [facility] and as they have Neurologic ICU with epilepsy center. The patient continues to have seizures, however, now currently at baseline. Still having high fevers , more alert today. The patient needs to be weaned off the ventilator. Review of Systems: Limited due to patient's medical conditions. Medications: List reviewed. Physical Examination: Vital signs: Temperature 101, heart rate 142, blood pressure 119/94, respirations 24, O2 99% on ET t ube, 24% FiO2. GENERAL: Awake, nonresponsive, intubated and lightly sedated, ill-appearing female. CV: S1, S2. Sinus tachycardia. No murmurs. Peripheral pulses present. Respiratory: Diminished breath sounds especially at the bases. The patient is tachypneic. Gastrointestinal: Abdomen is soft, nondistended. Positive bowel sounds. No guarding or rigidity. Extremities: No clubbing, cyanosis. Trace pedal edema bilaterally. Neuro: The patient does open eyes spontaneously, does move right upper extremity. Has contractures of the lower extremities. Skin: The patient does have skin breakdown on the upper lip from Ventimask. Laboratory Data: Sodium 147, potassium 3.8, chloride 117, CO2 18, BUN 6, creatinine 0.6, glucose 166 , calcium 8.8, albumin 1.9. WBC 25.5, H and H 928.2, platelets 677, neutrophils 78%. Cultures: No growth to date. Assessment: A 32-year-old female with: 1.Sepsis secondary to pneumonia, possible meningitis. CT chest abdomen ordered by Dr. Alexis to meghann maher elucidate any source of recurrent high fevers. We will obtain echocardiogram on Saturday to rul e out vegetation as a source. Antibiotics have been adjusted. WBC count continues to trend up. Ove rall poor prognosis. 2.Acute metabolic encephalopathy secondary to sepsis. 3.History of cerebrovascular accident and seizures. The patient is somewhat more alert. Will be of f phenobarbital. Still receiving Ativan p.r.n. for seizures over a certain threshold. 4.Acute respiratory distress and failure. The patient has been difficult to wean. We will continue weaning parameters. 5.Intractable seizure disorder. The patient off phenobarbital. Seizure frequency is now around bas destin. Continue Depakote and Keppra, Ativan p.r.n. Appreciate Dr. Cullen's input. Did speak with Dr. Lopez, the patient's a primary neurologist. He did recommend transferring to [facility]. 6.Anemia of chronic disease. Continue to monitor H and H, transfuse as needed. 7.Severe protein-calorie malnutrition. Albumin 1.9. We will continue tube feeds. 8.Essential hypertension, stable. 9.Recurrent fevers of unknown source. Repeat cultures negative to date. Possibly meningitis. We w ill follow up on CT abdomen, chest. 10.Stress ulcer on upper lip. DuoDerm has been applied. Plan: Overall poor prognosis. The patient awaiting administrative screening at [facility]. Transfer has also been initiated to [facility] per family request due to epilepsy center and a lso to [facility]. /BETY Voice ID: [id number] Report ID: [id number]
[2018-06-29] MEDS ORDERED: INSULIN GLARGINE 100 UNITS/ML SQ SCH (21:00)
--- NOTE | 2018-07-01 05:49 | DS ---
Date of Discharge: 06/29/2018 Consultants: Dr. Cullen with Neurology, Dr. Alexis with Pulmonology. Admitting Diagnoses: 1.Intractable seizure disorder. 2.Visual impairment. 3.Overweight. 4.Developmental disability. 5.Essential hypertension. 6.Hemiparesis. 7.Cardiomegaly. Discharge Diagnoses: 1.Sepsis. 2.Pneumonia. 3.Acute metabolic encephalopathy. 4.History of cerebrovascular accident and hemiparesis. 5.Acute respiratory failure. 6.Intractable seizure disorder. 7.Anemia of chronic disease. 8.Severe protein-calorie malnutrition. 9.Essential hypertension. 10.Recurrent fever, unknown source. 11.Stress ulcer on upper lip. Hospital Course: The patient had a protracted course in the hospital. 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 Follows with neurologi Dr. Jessica her in [place]. The patient came in with increased frequency of seizures, diarrhea, de hydration. The patient was started on IV fluids. She was checked for C diff which was negative. Cu ltures were also obtained, which remained negative. However, the patient continued to have multiple seizures above her baseline. The patient was seen by Dr. Cullen. She was placed on propofol and p henobarbital drip along with Ativan p.r.n. She was also added on Depakote and Keppra, however, her s eizures were slow to respond. The patient eventually was able to be weaned off phenobarbital. Her s eizures did improve. She was also found to have pneumonia, which was likely secondary to aspiration or possible community-acquired pneumonia from her seizures. The patient was on IV antibiotics as wel l as cultures remained negative. She continued to have high recurrent fevers. Her WBC count initial ly improved, however, continued to climb up. She was septic. The patient's neurologist, Dr. Posadas in, was contacted. He recommended transfer for higher level of care to Epilepsy Center in [facility] or [facility]. The patient was initially accepted to [facility] pending an admi nistrative approval. Transfer was also initiated to [facility] as well as to [facility]. Family was agreeable to that. The patient was then accepted to [facility] prior to administrative approval from [facility] and therefore was transferred. Overall, the patient's prognosis remained poor. Physical Examination: For physical exam findings, please see progress note dictated on the day of discharge. Total time transferring the patient was 47 minutes. USHA Voice ID: [id number] Report ID: [id number]
== END 2018-06-29 14:55 | disposition short-term general hospital (02) | DRG 870 ==
LOC: ER 21:23 → ERHOLD 06-17 03:18 → 3RD-ICU 06-17 05:00
PROVIDERS: ADMIT Hospitalist; ATTEND Family Medicine
PROC: 05H933Z Insertion of Infusion Device into Right Brachial Vein, Percutaneous Approach (ICD-10-PCS; 2018-06-17)
PROC: 0BH17EZ Insertion of Endotracheal Airway into Trachea, Via Natural or Artificial Opening (ICD-10-PCS; principal; 2018-06-18)
PROC: 5A1955Z Respiratory Ventilation, Greater than 96 Consecutive Hours (ICD-10-PCS; 2018-06-18)
PROC: 0DH67UZ Insertion of Feeding Device into Stomach, Via Natural or Artificial Opening (ICD-10-PCS; 2018-06-20)
PROC: 30243N1 Transfusion of Nonautologous Red Blood Cells into Central Vein, Percutaneous Approach (ICD-10-PCS; 2018-06-21)
PROC: 3E0G76Z Introduction of Nutritional Substance into Upper GI, Via Natural or Artificial Opening (ICD-10-PCS; 2018-06-21)
DX: A41.9 Sepsis, unspecified organism (principal); J18.9 Pneumonia, unspecified organism; J96.00 Acute respiratory failure, unspecified whether with hypoxia or hypercapnia; G93.41 Metabolic encephalopathy; E43 Unspecified severe protein-calorie malnutrition; I69.359 Hemiplegia and hemiparesis following cerebral infarction affecting unspecified side; E87.0 Hyperosmolality and hypernatremia; G40.211 Localization-related (focal) (partial) symptomatic epilepsy and epileptic syndromes with complex partial seizures, intractable, with status epilepticus; F79 Unspecified intellectual disabilities; R65.20 Severe sepsis without septic shock; D63.8 Anemia in other chronic diseases classified elsewhere; I10 Essential (primary) hypertension; R50.9 Fever, unspecified; K13.0 Diseases of lips; E86.0 Dehydration; Z88.1 Allergy status to other antibiotic agents; Z91.048 Other nonmedicinal substance allergy status; G80.9 Cerebral palsy, unspecified; Q02 Microcephaly; F45.8 Other somatoform disorders; I34.0 Nonrheumatic mitral (valve) insufficiency; D50.9 Iron deficiency anemia, unspecified; Z66 Do not resuscitate; E87.6 Hypokalemia; G93.89 Other specified disorders of brain; F01.50 Vascular dementia, unspecified severity, without behavioral disturbance, psychotic disturbance, mood disturbance, and anxiety; E87.8 Other disorders of electrolyte and fluid balance, not elsewhere classified; M41.85 Other forms of scoliosis, thoracolumbar region
CPT/HCPCS: 36415; 70450; 71045; 71260; 74176; 74177; 80048; 80053; 80076; 80156; 80164; 80177; 80184; 80202; 81001; 81003; 81015; 81025; 82607; 82728; 82805; 82962; 83540; 83605; 83690; 83735; 84100; 84132; 84145; 84439; 84443; 84466; 85014; 85018; 85025; 85027; 86850; 86900; 86901; 87040; 87070; 87086; 87088; 87205; 87493; 93307; 93971; 94002; 94003; 95816; 96361; 96374; 96375; 99285; C9113; G0008; J0456; J0696; J1450; J1650; J1953; J2270; J2405; J2543; J2560; J2997; J3010; J3370; J3411; J7030; J7060; P9016; Q2035; Q9967

== ENCOUNTER 2019-05-12 07:40 | Day surgery (SDC) | payer OTHER ==
[2019-05-12] MEDS ORDERED: Ringers Lactate 1,000 ML IV ONE (08:18)
[2019-05-12] MEDS ORDERED: PROPOFOL 200 MG/20 ML VIAL IV ONE ×3 (09:00→09:42)
[2019-05-12] MEDS ORDERED: LIDOCAINE 1% MPF 5 ML VIAL ONE ×2 (09:01→09:42)
[2019-05-12] MEDS ORDERED: MIDAZOLAM HCL 2 MG/2 ML INJ ONE (09:12)
[2019-05-12 09:56] VITALS: O2SAT 92
--- NOTE | 2019-05-12 10:18 | OP ---
Surgeon: Jesse Dimas MD Procedure To Be Performed: Esophagogastroduodenoscopy with PEG tube placement. Indication Of Procedure: Failure to thrive, malfunctioning PEG tube. Plan For Anesthesia: Monitored anesthesia care. Complexity: Average. Technique: After obtaining informed consent from the patient's next of kin and explaining risks and complications which include but not limited to bleeding, infection, perforation, anesthesia complicat ions, the patient was placed in a supine position and sedation was given. Subsequently, the scope wa s advanced into the mouth and carefully guided up to the second portion of the duodenum. Subsequentl y, after the completion of examination and all diagnostic and therapeutic maneuvers, scope and equipm ent were withdrawn and procedure terminated in a safe manner. Findings: 1.Esophagus: No gross lesion seen in the esophagus. 2.Stomach: Mild patchy erythema seen in the body and antrum. Biopsies taken. Also, seen was a bal loon gastrostomy tube that was present. This tube was first removed by decompressing the balloon and through the same stoma the guidewire was passed and with a pull guidewire technique, a 20-[place] [employer] PEG tube was placed utilizing the same stoma. No new incision or needle insertion was needed. The external bumper was at 5 to 5.5 cm. The position of the internal bumper was confirmed with reintroduction of the scope. 3.Duodenum: In the bulb there was a small cratered ulcer that was seen. This was biopsied. Complications: None. Tolerance To Anesthesia: Excellent. Postoperative Diagnoses: Duodenal ulcers, gastritis, status post PEG placement. Plan: 1.Await pathology results. 2.PPI through PEG tube daily. 3.Avoid NSAIDs. 4.Can resume diet immediately. This was a simple PEG replacement rather than a new PEG placement. 5.Follow up in the GI clinic in 2 weeks. US/MODL Voice ID: [id number] Report ID: [id number]
[2019-05-12 11:08] VITALS: BP 100/62; TEMP 97.8
== END 2019-05-12 10:45 | disposition home or self-care (01) ==
LOC: OR 07:40
PROVIDERS: ATTEND Internal Medicine Gastroenterology
PROC: 0DB98ZX Excision of Duodenum, Via Natural or Artificial Opening Endoscopic, Diagnostic (ICD-10-PCS; 2019-05-12)
PROC: 0DB68ZX Excision of Stomach, Via Natural or Artificial Opening Endoscopic, Diagnostic (ICD-10-PCS; 2019-05-12)
PROC: 0DH63UZ Insertion of Feeding Device into Stomach, Percutaneous Approach (ICD-10-PCS; principal; 2019-05-12 08:30)
DX: K94.23 Gastrostomy malfunction (principal); R62.7 Adult failure to thrive; R63.3 Feeding difficulties; K29.50 Unspecified chronic gastritis without bleeding; K26.9 Duodenal ulcer, unspecified as acute or chronic, without hemorrhage or perforation; K29.80 Duodenitis without bleeding; I10 Essential (primary) hypertension; R56.9 Unspecified convulsions; Z88.3 Allergy status to other anti-infective agents; Z91.048 Other nonmedicinal substance allergy status; Z86.73 Personal history of transient ischemic attack (TIA), and cerebral infarction without residual deficits; Z82.49 Family history of ischemic heart disease and other diseases of the circulatory system
CPT/HCPCS: 36415; 88312; 84132; 88305; 43246; 43239; J2704 ×2; J2250